=== PATIENT | male | born 1955 | race Caucasian/White ===

== ENCOUNTER 2021-02-22 09:49 | Outpatient (CLI) | payer OTHER, SELFPAY ==
--- NOTE | ~2021-02-22 | XR_ITS ---
EXAMINATION: XR lumbar spine 2-3V DATE: 02/22/2021 10:36 INDICATION: Chronic low back pain TECHNIQUE: Anteroposterior and lateral views of the lumbar spine, and cone-down lateral view of the l umbosacral junction were obtained. COMPARISON: None. FINDINGS: There are 2 mm of retrolisthesis of L3 on L4 and 5 mm of retrolisthesis of L5 on S1. There is severe loss of intervertebral disc space height at L4-5 and L5-S1. Moderate loss of intervertebral disc space height is present throughout the remainder of the lumbar spine. There is no fracture. The re are 17 degrees of lumbar levoscoliosis. Small degenerative osteophytes project from the anterior e ndplates of multiple vertebral bodies. Calcified atherosclerosis is noted. IMPRESSION: 1. Severe lower lumbar spondylosis without acute findings. Reviewed, dictated and finalized at location B.
== END 2021-02-22 09:50 | disposition home or self-care (01) ==
LOC: CHSIMG 09:53
PROVIDERS: PCP Nurse Practitioner; Visit Provider Nurse Practitioner
DX: M54.5 Low back pain (principal)
CPT/HCPCS: 72100

== ENCOUNTER 2023-04-24 13:21 | Emergency (ER) | payer MEDICARE, MEDICAID, SELFPAY ==
[2023-04-24 13:21] VITALS: BP 162/99; PULSE 76; RESP 18; TEMP 37.4; O2SAT 98
[2023-04-24 13:33] VITALS: BP 162/99; PULSE 76; RESP 18; O2SAT 98
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
[2023-04-24 14:30] VITALS: BP 144/93; PULSE 71; RESP 16; TEMP 36.7; O2SAT 100
== END 2023-04-24 14:31 | disposition home or self-care (01) ==
PROVIDERS: Emergency Provider Internal Medicine Critical Care Medicine; PCP Physician Assistant
DX: S51.812A Laceration without foreign body of left forearm, initial encounter (principal); J44.9 Chronic obstructive pulmonary disease, unspecified; F17.210 Nicotine dependence, cigarettes, uncomplicated; Z79.891 Long term (current) use of opiate analgesic; W45.8XXA Other foreign body or object entering through skin, initial encounter
CPT/HCPCS: 12032; 99283

== ENCOUNTER 2024-01-29 09:50 | Outpatient (RCR) | payer OTHER, SELFPAY ==
--- NOTE | 2024-01-29 11:00 | OPREHPOC ---
Outpatient Therapy Plan of Care This is a Multidisciplinary Plan of Care that may contain components documented by all disciplines (PT, OT, and ST.) PT Problem 1 PT Problem #1 Knowledge Deficit PT Goal 1 Goal patient to demonstrate independence with HEP Target Visit 5 PT Problem 2 PT Problem #2 Pain PT Goal 1 Goal 1. patient to report highest pain at 2/10 2. patient to report ability to get up from chair with no L knee pain Target Visit 10 PT Goal 1 Goal Patient to demonstrate 0-135 deg of L knee AROM with no pain at end range to return to biking without pain Target Visit 10 PT Problem 4 PT Problem #4 Impaired Strength PT Goal 1 Goal Patient to demonstrate 4+/5 strength of B LE to return to getting up from chair and squatting for house hold tasks Target Visit 10 PT Problem 5 PT Problem #5 Impaired Functional Mobil PT Goal 1 Goal 1. Patient to score 20% improvement on LEFS 2. Patient to report ability to complete 1 hour of work without increase in L knee pain 3. Patient to navigate stairs to complete laundry with no limitations Target Visit 10
--- NOTE | 2024-01-29 11:00 | PTOPEVAL1 ---
Assessment and note entered by Marlen Lopez DPT Evaluation Information Assessment Status Evaluation Diagnosis L knee pain Onset 01/26/24 Subjective Information Patient reports back in Dec he slipped on ice and twisted his L knee. He reports he had a knee surgery 4 years ago to clean out knee . He reports since the injury his knee pain and instability has improved. He reports the knee feels unstable with numbness below the knee. He reports he has a history of back surgeries. He reports he had an x-ray and MRI that he reports shows torn things . He reports he is to do 30 days of PT prior to being referred to a new ortho. He reports he has been using a cane for the last year due to back pain. He reports pain and instability walking, standing for prolonged periods, navigating stairs, and getting up out of a chair. He enjoys riding his bike. Reported Pain Level Pain Score 1: Self Report Assessment PT Clinical Summary Mr. Ashraf is a 68 year old male who presents to PT with L knee pain and instability. He demonstrates decreased L LE strength, impaired gait mechanics, pain at end range of L knee flexion and positive anterior drawer test indicating ACL tear. He has difficulty with stair navigation, getting up out of a chair, prolonged ambulation and completing house hold chores. He would benefit from skilled PT to address impairments and return to PLOF. Plan of Care Interventions Electrical Stimulation,Gait Training,Hot Pack/Cold Pack,Manual Therapy,Neuro Re-education,Patient/ Caregiver Educati,Therapeutic Activities, Therapeutic Exercise PT Services Indicated Yes Treatment Frequency and 2x weekly for 10 visits Duration These treatments will address the objective and functional deficits as defined above. The patient will be advanced safely and appropriately in order for the patient to progress towards his/her prior level of function. Additional exercises will be introduced and as well as a comprehensive home exercise program upon discharge, if needed, ?to ensure carryover of functional gains achieved in the clinic. This treatment plan has been reviewed and agreement upon by the patient.
--- NOTE | 2024-02-09 10:33 | PCPTNOTE ---
patient no call no show
== END 2024-02-04 20:00 | disposition home or self-care (01) ==
LOC: CHSPT 09:50
PROVIDERS: Visit Provider Orthopaedic Surgery
DX: M23.52 Chronic instability of knee, left knee (principal)
CPT/HCPCS: 97110; 97161

== ENCOUNTER 2025-01-18 08:48 | Emergency (ER) | payer OTHER, SELFPAY ==
--- NOTE | ~2025-01-18 | XR_ITS ---
EXAMINATION: XR ankle RT min 3V DATE: 01/18/2025 09:27 INDICATION: Right ankle sprain. TECHNIQUE: 4 views of right ankle were obtained. COMPARISON: None. FINDINGS: No lateral view was obtained. There is an old healed fracture of distal tibial diaphysis wi th internal fixation with intramedullary frank and 2 distal interlocking screws. There is an oblique fr acture of distal fibula with medial aspect of the fracture line at the lateral tibial plafond. The di stal fracture fragment demonstrates 2 mm posterolateral displacement. 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 IMPRESSION: 1. Oblique fracture of distal fibula. Reviewed, dictated and finalized at location B.
[2025-01-18 08:48] VITALS: BP 150/99; PULSE 92; RESP 18; TEMP 36.9; O2SAT 98
--- NOTE | 2025-01-18 08:59 | ED.LOWEXIN ---
HPI - Extremity Injury (Lower) General Chief Complaint: Extremity Injury, Lower Stated Complaint: FOOT PAIN Time Seen by Provider: 01/18/25 08:59 Source: patient Mode of arrival: ambulatory Limitations: no limitations History of Present Illness HPI Narrative: 69-year-old female, smoker with history of COPD, status post neck and back surgery, rheumatoid arthritis,chronic pain presents to the ED with -- right ankle pain and swelling. He twisted his ankle 1 month ago and has had ongoing pain. He is able to bear weight. He has polyarthritis with joint stiffness in the morning. MD complaint: ankle injury Onset (ago): month(s) ( One month) Injury: Right: ankle Type of Injury: inversion Place: home Severity: moderate Relieving factors: immobilization Exacerbating factors: weight bearing Context: fall Associated symptoms: swelling Other symptoms: none Treatments prior to arrival: cold therapy Related Data Home Medications ?Medication ?Instructions ?Recorded ?Confirmed ?Last Taken ?Type fluticasone 250 mcg-salmeterol 50 1 ea inhalation ONCE 04/24/23 04/24/23 Unknown History mcg/dose blistr powdr for inhalation (Advair Diskus) tramadol 50 mg tablet 50 mg PO Q6-8H PRN Pain 04/24/23 04/24/23 Unknown History Allergies Allergy/AdvReac Type Severity Reaction Status Date / Time No Known Allergies Allergy Verified 01/18/25 08:49 Review of Systems Review of Systems: All systems reviewed & are unremarkable except as noted in HPI and below Constitutional: Constitutional: Reports as per HPI and Reports no additional constitutional complaints Eyes: Eyes: Reports as per HPI and Reports no additional eye complaints ENT: Reports system reviewed and no additional complaints, except as documented and Reports as per HPI Cardiovascular: Cardiovascular: Reports as per HPI and Reports no additional cardiovascular complaints Respiratory: Respiratory: Reports as per HPI, Reports chest congestion, Reports cough and Reports dyspnea Gastrointestinal: Gastrointestinal: Reports as per HPI and Reports no additional gastrointestinal complaints Genitourinary: Genitourinary: Reports no additional male genitourinary complaints and Reports as per HPI Musculoskeletal: Musculoskeletal: Reports no additional musculoskeletal complaints, Reports back pain and Reports arthralgias Comments: chronic neck and back pain. Chronic polyarticular arthralgia Integumentary/Breasts: Skin/Breast: Reports system reviewed and no additional complaints, except as docu and Reports as per HPI Neurologic: Reports system reviewed and no additional complaints, except as documented and Reports as per HPI Psychiatric: Psychiatric: Reports no additional psychiatric complaints and Reports as per HPI Endocrine: Endocrine: Reports no additional endocrine complaints and Reports as per HPI Hematologic/Lymphatic: Hematologic/Lymphatic: Reports no additional hematologic/lymphatic complaints and Reports as per HPI Allergic/Immunologic: Allergic/Immunologic: Reports no additional allergic/immunologic complaints and Reports as per HPI [facility] Past Medical History Medical History Neck pain with history of cervical spinal surgery COPD (chronic obstructive pulmonary disease) Chronic low back pain Chronic neck pain Surgical History Surgical History H/O lumbosacral spine surgery Social History Social History Social History: active smoker Exam Const: General: ill appearing Nutritional Appearance: thin Orientation/consciousness: patient oriented x3 Limitations: no limitations HENMT: Head: normal to inspection Ears: external ears normal Face/Nose/Sinus: Normal external nose present Face and sinus: normal facial exam Mouth: Yes Normal oral and palatal mucosa present Throat: posterior oropharynx normal Eyes: Conjunctivae: conjunctivae normal Pupils: Equal, round and reactive pupils present EOM: EOMs intact bilaterally Direct Ophthalmoscopy: no photophobia Neck: Neck: normal visual inspection, no lymphadenopathy and no meningeal signs Other: chronic neck pain Chest: Chest palpation & inspection: normal inspection of the chest Resp: Effort & Inspection: tachypneic Auscultation: rhonchi and diminished lung sounds Cardio: Rate: regular rate Rhythm: regular rhythm GI: GI Palp: Yes Soft to palpation Auscultation: normal bowel sounds Other: no tenderness/ rigidity / rebound. : General: Yes no CVA tenderness Back/Spine/Pelvis: Back: no CVA tenderness Other: Lumbar spine has scoliosis. Cervical spine as a protuberance of C7. Skin: General skin exam: normal color Rashes: no rashes Wounds: no wounds Neuro: General: patient oriented x3, moves all extremities, no meningeal signs, no focal motor deficits and CN's II-XI intact bilaterally Cranial nerves: Yes Nystagmus not present Speech: normal speech Gait exam (Neuro): Normal gait present Extrem: General: normal to inspection and no clubbing, cyanosis or edema Other: Ulnar deviation of the hand right ankle-- swelling over the lateral malleolus. Tenderness around the lateral malleolus. Sprain of the lateral collateral ligament of the ankle. Psych: Mental Status: mental status grossly normal Affect: normal affect Attitude: cooperative Course Course Emergency Course: accidental fall right fibular fracture with displacement of 2 mm -- Will place short leg posterior splint with a sugar-tong for additional support. Will refer the patient to Ortho specialist. Distal neurovascular bundle is intact. called ortho specialist Dr. Chen for an ortho consultation. Discussed with the ortho specialist to advise a short posterior leg splint. Advised to call the office and schedule an appointment. Post splint application the new distal neurovascular bundle is intact. Vital Signs Vital signs: Vital Signs Temperature 36.9 C 01/18/25 08:48 Pulse Rate 92 01/18/25 08:48 Respiratory Rate 18 01/18/25 08:48 Blood Pressure 150/99 H 01/18/25 08:48 Pulse Oximetry 98 01/18/25 08:48 Oxygen Delivery Room Air 01/18/25 08:48 Temperature 36.9 C 01/18/25 08:48 Pulse Rate 92 01/18/25 08:48 Respiratory Rate 18 01/18/25 08:48 Blood Pressure 150/99 H 01/18/25 08:48 Pulse Oximetry 98 01/18/25 08:48 Oxygen Delivery Room Air 01/18/25 08:48 MDM - Extremity Injury (Lower) MDM Narrative Medical decision making narrative: Accidental fall right fibula fracture Differential Diagnosis Differential diagnosis: Likely ankle sprain and strain and ankle fracture Medical Records Attestation: I reviewed the patient's medical records. Lab Data Attestation: I reviewed the patient's lab results. Discharge Plan Discharge Patient Language: Congolese Prescriptions: No Action fluticasone propion-salmeterol [Advair Diskus] 250-50 mcg/dose blister with device 1 ea INHALATION ONCE tramadol 50 mg tablet 50 mg PO Q6-8H PRN (Reason: Pain) cephalexin 500 mg capsule 500 mg PO Q6H 7 Days Qty: 28 0RF
--- OUTSIDE RECORDS SUMMARY | 2025-01-18 09:08 | XMS_ITS | Clinical Summary ---
Author Organization [facility] Address [facility] [place] [address] Care Team Providers Care Bundle Breaker Name Role Phone Carrol Benitez [facility] Primary Care Provider [phone] Allergies No known active allergies Medications albuterol sulfate HFA 108 (90 Base) MCG/ACT inhaler Inhale 2 puffs into the lungs 4 (four) times daily as needed. 10/10/2014 Active Naproxen Sodium 220 MG Cap Take 2 tablets by mouth 2 (two) times daily as needed. Active ADVAIR DISKUS 250-50 MCG/ACT inhaler Inhale 2 puffs into the lungs daily. 08/27/2022 Active BREO ELLIPTA 200-25 MCG/ACT inhaler 01/06/2024 Active meloxicam (MOBIC) 15 MG tabletIndication s:Patellar instability of left knee,Tear of medial meniscus of left knee, unspecified tear type, unspecified whether old or current tear, initial encounter Take 1 tablet (15 mg total) by mouth daily. 30 tablet 2 01/06/2024 Active Active Problems Problem Noted Date Diagnosed Date Dislocation of toe of right foot, initial encoun ter 11/25/2022 Overview (11/25/2022): Added automatically from request for surgery [id number] Arthritis of foot, right 11/25/2022 Overview (11/25/2022): Added automatically from request for surgery [id number] Loose body in knee, left 10/01/2020 Other tear of medial meniscu s of left knee as current injury, initial encounter 10/01/2020 Pneumothorax on right 05/18/2020 Closed fracture of multiple ribs of right side 0 05/18/2020 Family History Medical History Relation Comments No Known Problems Brother 1 No Known Problems Brother 2 Lung Disease Father No Known Problems Mother No Known Problems Sister Relation Status Comments Brother 1 Brother 2 Alive Father Mother Sister Alive Social History Tobacco Use Types Packs/Day Years Used Date Smoking Tobacco: Every Day Cigarettes 1.5 50 Smokeless Tobacco: Never Tobacco Cessation:Ready to Q uit: Not Asked; Counseling Given: Not Answered Alcohol Use Standard Drinks/Week Comments Yes 60 (1 standard drink = 0.6 oz pu re alcohol) Sex and Gender Information Value Date Recorded Sex Assigned at Male 05/17/2020 10:19 PM CDT Legal Sex Male 9:09 PM SAP PI DEVELOPER Gender Identity Male 05/17/2020 10:19 PM CDT Sexual Orientation Not on file Last Filed Vital Signs Vital Sign Reading Time Taken Comments Blood Pressure 133/95 10/19/2020 9:13 AM SAP PI DEVELOPER Pulse 71 10/19/2020 9:13 AM SAP PI DEVELOPER Temperature 36.3 C (97.4 F) 10/19/2020 9:13 AM SAP PI DEVELOPER Respiratory Rate 20 10/19/2020 9:13 AM SAP PI DEVELOPER Oxygen Saturation 97% 10/19/2020 9:13 AM SAP PI DEVELOPER Inhaled Oxygen Concentration - - Weight 56.7 kg (125 lb) 01/26/2024 8:20 AM CDT Height 177.8 cm (5' 10 ) 01/26/2024 8:20 AM CDT Body Mass Index 17.94 01/26/2024 8:20 AM CDT Plan of Treatment Health Maintenance Due Date Last Done Comments Colorectal Cancer Screening Colonoscopy (10 Years) 1956 Pneumococcal Vaccine: 65+ Years (1 of 2 - PCV) 1962 Hepatitis C 1974 DTaP, Tdap and Td Vaccines (1 - Tdap) 1975 Zoster Vaccines (1 of 2) 2006 Annual Medicare Wellness Visit 2021 Lung Cancer Screening 05/18/2021 05/18/2020 , 03/23/2014, 03/23/2014, Additional history exists COVID-19 Vaccine (2 - season) 2024 11/11/2022 Influenza Adult (#1) 2024 RSV Immunization or 60+ Years (1 - 1-dose 75+ series) 2031 AAA SCREENING Completed 05/18/2020, 0707/2020, 03/23/2014, Additional history exists Meningococcal B Vaccine Aged Out No l onger eligible based on patient's age to complete this topic Meningococcal Vaccine Aged Out No renato colleen eligible based on patient's age to complete this topic RSV Immunizations Under 20 Months Aged Out No longer eligible based on patient's age to complete this topic Procedures Procedure Name Priority Date/Time Associated Diagnosis Comments CT CHEST W CON STAT 05/18/2020 3:25 AM CDT from Last 3 Months or Most Recently Relevant to Health Maintenance Results * CT CHEST W CON (05/18/2020 3:25 AM CDT) Anatomical Region Laterality Modality Chest Computed Tomogra phy 05/18/2020 4:12 AM CDT Impressions 05/18/2020 4:34 AM CDT IMPRESSION: 1. Tiny residual circumferential right-sided pneumothorax with greatest pleural separation in the anterior base at 7 mm 2. Right lower lobe rounded consolidation atelectasis or infiltrate; less likely this is focal area of pulmonary hemorrhage or pulmonary contusion. 3. Advanced underlying centrilobular and bullous emphysematous change 4. Right chest tube in good position 3. Stable biapical fibroatelectasis fibrous scarring thickening 4. Acute nondisplaced fractures right eighth and ninth and 10th ribs in the posterior axillary line. Interpreted By: Whit Sultana DO, 05/18/2020 4:12 AM Narrative 05/18/2020 4:34 AM CDT EXAMINATION: CHEST CT WITH CONTRAST CLINICAL INDICATION: 65-year-old with a right pneumothorax treated with right chest tube. Trauma transfer from [facility]. Patient fell tonight. TECHNIQUE: CT of the chest was acquired after intravenous administration of 100 cc of Isovue-370 into indwelling intravenous access in the right antecubital fossa without adverse contrast reaction reported. Images acquired from the thoracic inlet to the upper abdomen then reconstructed in sagittal and coronal projections. Dose lowering technique was used for this study which may include, but is not limited to, dose reduction techniques, automated exposure control, use of iterative reconstruction and ALARA (As low As Reasonably Achievable)/Image Gently techniques. COMPARISON: Contrast-enhanced CT chest 10/12/2014 and 03/13/[address] chest abdomen and pelvis 03/20/2014 and FDG PET/CT 03/23/2014. FINDINGS: Tiny residual circumferential pneumothorax with 3 mm pleural separation in the apex and 7 mm pleural separation in the anterior base and 6 mm pleural separation in the posterior base. The right chest tube is in good position along the fissure. Small amount of subcutaneous emphysema right lateral chest wall at site of chest tube insertion. No focal opacities that would suggest pulmonary hemorrhage or pulmonary contusion. There is no pleural thickening or pleural reaction. Small area of round atelectasis or localized infiltrate posterior medial right lung base; less likely this could represent small area pulmonary hemorrhage or pulmonary contusion. No characteristics of pulmonary edema . There are findings of advanced centrilobular emphysematous change as well as bullous emphysematous change seen as large subpleural bullae around the upper lobes and along each lung base. Stable area of partially calcified triangular scar in the left apex unchanged since 2013 and there is linear labral atelectasis in the right apex also unchanged since 2013. No interval development of pulmonary nodule. The heart is within normal limits of size. No pericardial effusion. Normal caliber thoracic aorta no aneurysmal dilatation. Thick fluid. Small patulous thick rimmed 3 cm diameter hiatal hernia. Esophageal irregularity could represent distal esophagitis or gastroesophageal reflux disease. The included portions of the liver and spleen and adrenal glands and pancreas and gallbladder are grossly unremarkable. No evidence of ascites or traumatic upper abdominal solid organ injury. Diffuse hepatic steatosis. Bone window imaging: Acute nondisplaced fractures of right eighth and ninth and 10th ribs in the posterior axillary line with subjacent pleural thickening. The sternum and scapula and included thoracic and upper lumbar spine are intact without evidence of acute fracture. Stable old wedge compression deformity superior endplate T6 unchanged in height since 2013. No acute right rib fracture. No pathologic bony abnormality. Procedure Note Whit Sultana MD - 05/18/2020 EXAMINATION: CHEST CT WITH CONTRAST CLINICAL INDICATION: 65-year-old with a right pneumothorax treated with right chest tube.Trauma transfer from [facility]. Patient fell tonight. TECHNIQUE: CT of the chest was acquired after intravenous administration of 100 ccof Isovue-370 into indwelling intravenous access in the right antecubital fossa without adverse contrast reaction reported. Images acquired fromthe thoracic inlet to the upper abdomen then reconstructed in sagittal and coronal projections. Dose lowering technique was used for this study which may include, butis not limited to, dose reduction techniques, automated exposure control,use of iterative reconstruction and ALARA (As low As Reasonably Achievable)/Image Gently techniques. COMPARISON: Contrast-enhanced CT chest 10/12/2014 and 03/13/[address] chest abdomenand pelvis 03/20/2014 and FDG PET/CT 03/23/2014. FINDINGS: Tiny residual circumferential pneumothorax with 3 mm pleural separationin the apex and 7 mm pleural separation in the anterior base and 6 mmpleural separation in the posterior base. The right chest tube is in goodposition along the fissure. Small amount of subcutaneous emphysema right lateral chest wall at site of chest tube insertion. No focal opacities that would suggest pulmonary hemorrhage or pulmonary contusion. There is no pleural thickening or pleural reaction. Smallarea of round atelectasis or localized infiltrate posterior medial right lung base; less likely this could represent small area pulmonary hemorrhageor pulmonary contusion. No characteristics of pulmonary edema . There are findings of advanced centrilobular emphysematous change aswell as bullous emphysematous change seen as large subpleural bullae aroundthe upper lobes and along each lung base. Stable area of partially calcified triangular scar in the left apex unchanged since 2013 and there is linear labral atelectasis in the right apex also unchanged since 2013. No interval development of pulmonary nodule. The heart is within normal limits of size. No pericardial effusion. Normal caliber thoracic aorta no aneurysmal dilatation. Thick fluid. Small patulous thick rimmed 3 cm diameter hiatal hernia. Esophageal irregularity could represent distal esophagitis or gastroesophagealreflux disease. The included portions of the liver and spleen and adrenal glands and pancreas and gallbladder are grossly unremarkable. No evidence ofascites or traumatic upper abdominal solid organ injury. Diffuse hepaticsteatosis. Bone window imaging: Acute nondisplaced fractures of right eighth andninth and 10th ribs in the posterior axillary line with subjacent pleural thickening. The sternum and scapula and included thoracic and upper lumbar spine are intact without evidence of acute fracture. Stable old wedge compression deformity superior endplate T6 unchanged in height since 2013. No acute right rib fracture. No pathologic bony abnormality. IMPRESSION: 1. Tiny residual circumferential right-sided pneumothorax with greatest pleural separation in the anterior base at 7 mm 2. Right lower lobe rounded consolidation atelectasis or infiltrate;less likely this is focal area of pulmonary hemorrhage or pulmonarycontusion. 3. Advanced underlying centrilobular and bullous emphysematous change 4. Right chest tube in good position 3. Stable biapical fibroatelectasis fibrous scarring thickening 4. Acute nondisplaced fractures right eighth and ninth and 10th ribs inthe posterior axillary line. Interpreted By: Whit Sultana DO, 05/18/2020 4:12 AM Beverly Leiva MD CT Fin al Result from Last 3 Months or Most Recently Relevant to Health Maintenance Insurance [employer] Advance Directives * Full Code (Latest Code Status on File) Date Activated Date Inactivated Comments 05/18/2020 3:31 AM 05/21/2020 3:32 PM Care Teams Bundle Breaker Relationship Specialty Start Date End Date Carrol Benitez FNP-BC [address] [facility] [place] [address] PCP - General NURSE PRACTITIONER 10/02/20
--- OUTSIDE RECORDS SUMMARY | 2025-01-18 09:08 | XMS_ITS | Referral Summary ---
Author Organization [facility] Address [address] [place] [id number] Care Team Providers Care Patent Litigation Associate Name Role Phone No, Physician Primary Care Provider [phone] Allergies No known active allergies Medications traMADoL (ULTRAM) 50 mg tablet Take 1 tablet (50 mg total) by mouth every 6 (six) hours as needed 04/08/2023 Active naproxen sodium 220 mg capsule Take 2 tablets by mouth 2 (two) times a day as needed Active albuterol HFA (PROVENTIL HFA,VENTOLIN HFA,PROAIR HFA) 90 mcg/actuation inhaler Inhale 2 puffs 4 (four) times a day as needed 10/10/2014 Active Active Problems Problem Noted Date Diagnosed Date Arthritis of foot, right 11/25/2022 023 Overview (04/22/2023): Added automatically from request for surgery [id number] Dislocation of toe of right foot 11/25/2022 04/22/2023 Overview (04/22/2023): Added automatically from request for surgery [id number] Loose body in knee, left 10/01/2020 023 Tear of medial meniscus of left knee, current 04/22/2023 Closed fracture of multiple ribs of right side 0 03/30/2014 04/22/2023 Closed fracture of thoracic vertebra 03/30/2014 04/22/2023 Interstitial emphysema 03/30/2014 Other nonspecific abnormal finding of lung field 03/30/2014 04/22/2023 Pneumothorax on right 03/30/2014 04/22/2023 Social History Tobacco Use Types Packs/Day Years Used Date Smoking Tobacco: Every Day Cigarettes Personal Safety Answer Date Recorded Getting School Help Needed Not on file 01/02 Sex and Gender Information Value Date Recorded Sex Assigned at Not on file Legal Sex Male 9:21 AM POST FORM REMOVER Gender Identity Not on file Sexual Orientation Not on file Last Filed Vital Signs Vital Sign Reading Time Taken Comments Blood Pressure - - Pulse - - Temperature - - Respiratory Rate - - Oxygen Saturation - - Inhaled Oxygen Concentration - - Weight 56.7 kg (125 lb) 04/22/2023 10:12 AM CDT Height 177.8 cm (5' 10 ) 04/22/2023 10:12 AM CDT Body Mass Index 17.94 04/22/2023 10:12 AM CDT Plan of Treatment Not on file Insurance [facility] MEDIC[facility] Care Teams Patent Litigation Associate Relationship Specialty Start Date End Date No, Physician PCP - General 02/11/23
--- OUTSIDE RECORDS SUMMARY | 2025-01-18 09:08 | XMS_ITS | Encounter Summary ---
Author Organization [facility] Address [address] [place] [address] Care Team Providers Care Gasser Machine Operator Name Role Phone Carrol Benitez [facility] Primary Care Provider [phone] Encounter Details Date Type Department Care Team (Latest Contact Info) Description 09/14/2018 Abstract [facility] , Elisa Tilley MD Social History Tobacco Use Types Packs/Day Years Used Date Smoking Tobacco: Never Assessed Sex and Gender Information Value Date Recorded Sex Assigned at Male 05/17/2020 10:19 PM CDT Legal Sex Male 9:09 PM OPERATIONS BUSINESS PARTNER Gender Identity Male 05/17/2020 10:19 PM CDT Sexual Orientation Not on file documented as of this encounter Plan of Treatment Not on file documented as of this encounter Visit Diagnoses Not on filedocumented in this encounter Additional Health Concerns Infection Onset Date Last Indicated Resolved Time COVID-19 Rule Out 10/16/2020 10/16/2020 10/18/2020 12:41 AM OPERATIONS BUSINESS PARTNER COVID-19 Rule Out 07/30/2021 07/30/2021 07/30/2021 7:11 PM CDT COVID-19 Rule Out 09/06/2021 09/06/2021 09/06/2021 7:47 PM CDT COVID-19 Rule Out 02/07/2022 02/07/2022 02/07/2022 7:20 PM CDT documented as of this encounter Care Teams Gasser Machine Operator Relationship Specialty Start Date End Date Carrol Benitez FNP-BC [address] [place] [address] PCP - General NURSE PRACTITIONER 10/02/20 documented as of this encounter
--- OUTSIDE RECORDS SUMMARY | 2025-01-18 09:08 | XMS_ITS | Clinical Summary ---
Author Organization [facility] Address [address] [place] [address] Care Team Providers Care Linux Systems Administrator Name Role Phone Unavailable Primary Care Provider Unavailabl e Source Comments [facility],non-owned Affiliates and Associated Physician Practices is amultiple site organization consisting of ambulatory clinics and hospital sitesin [place], [place], [place] and [place]. This disclosure is being madepursuant to the Care Everywhere program and may not contain all information available regarding this patient. Last updated 18.[facility] Medications * Be aware that medications may not be up to date on this document. Alwaysverify current medications with the patient. Medication Sig Dispensed Refills Start Date End Date Status Naproxen Sodium 220 MG Take 2 tablets by mouth 2 times daily as needed Active Active Problems Problem Noted Date Diagnosed Date Multiple closed fractures of ribs 03/30/2014 Closed fracture of thoracic vertebra 03/30/2014 Closed fracture of lumbar vertebra 03/30/2014 Interstitial emphysema 03/30/2014 Other nonspecific abnormal finding of lung field 03/30/2014 Pneumothorax 03/30/2014 Social History Tobacco Use Types Packs/Day Years Used Date Smoking Tobacco: Never Cigarettes Smokeless Tobacco: Never Alcohol Use Standard Drinks/Week Comments No 0 (1 standard drink = 0.6 oz pur e alcohol) Sex and Gender Information Value Date Recorded Sex Assigned at Not on file Gender Identity Not on file Sexual Orientation Not on file Last Filed Vital Signs Vital Sign Reading Time Taken Comments Blood Pressure 101/67 04/11/2014 1:46 PM CDT Pulse 89 04/11/2014 1:46 PM CDT Temperature 36.2 C (97.1 F) 04/11/2014 1:46 PM CDT Respiratory Rate 20 03/30/2014 2:19 PM CDT Oxygen Saturation 98% 03/30/2014 2:19 PM CDT Inhaled Oxygen Concentration - - Weight 53.1 kg (117 lb) 04/11/2014 1:46 PM CDT Height 177.8 cm (5' 10 ) 03/23/2014 6:51 AM CDT Body Mass Index 16.79 03/23/2014 6:51 AM CDT Plan of Treatment Health Maintenance Due Date Last Done Comments COLOGUARD (AGES 45-75) - COL ON CA SCREENING 1956 COLON MONITORING 1956 COLONOSCOPY - COLON CA SCREENING 1956 CT COLONOGRAPHY - COLON CA SCREENING 1955 Colorectal Cancer Screening 1956 FIT - COLON CA SCREENING 1956 FLEX SIG - COLON CA SCREENING 1956 LIPID TESTING 1955 MEDICARE AWV 12 MONTHS 1956 HEPATITIS C SCREENING 04/20/1974 DTAP/TDAP/TD VACCINES (1 - Tdap) 1975 PNEUMOCOCCAL VACCINE 50+ (1 of 2 - PCV) 1975 ZOSTER VACCINE (1 of 2) 2006 Respiratory Syncytial Virus (RSV) Vaccine Pt: or over 60 yrs (1 - Risk 60-74 years 1-dose series) 2016 COVID-19 VACCINE ( - 2023-2 5 season) 2024 INFLUENZA VACCINE (#1) 2024 DEPRESSION SCREENING 11/09/2024 HEPATITIS B VACCINE Aged Out No longe r eligible based on patient's age to complete this topic HIB VACCINE Aged Out No longer eligi ble based on patient's age to complete this topic HPV VACCINE Aged Out No longer eligi ble based on patient's age to complete this topic MENINGOCOCCAL (Group B) VACC INE SHARED DECISION-MAKING Aged Out No longer eligibl e based on patient's age to complete this topic MENINGOCOCCAL GROUPS A/C/Y/W VACCINE Aged Out No longer eligible b ased on patient's age to complete this topic
--- OUTSIDE RECORDS SUMMARY | 2025-01-18 09:08 | XMS_ITS | Clinical Summary ---
Author Organization [facility] Address [address] [place] [id number] Care Team Providers Care Plastics Factory Worker Name Role Phone No, Physician Primary Care Provider [phone] Allergies No known active allergies Medications traMADoL [...] (04/22/2023): Added automatically from request for surgery [id number] Dislocation of toe of right foot 11/25/2022 04/22/2023 Overview (04/22/2023): Added automatically from request for surgery [id number] Loose body in knee, left 10/01/2020 023 Tear of medial meniscus of left knee, current 04/22/2023 Closed fracture of multiple ribs of right side 0 03/30/2014 04/22/2023 Closed fracture of thoracic vertebra 03/30/2014 04/22/2023 Interstitial emphysema 03/30/2014 Other nonspecific abnormal finding of lung field 03/30/2014 04/22/2023 Pneumothorax on right 03/30/2014 04/22/2023 Medical History Medical History Date Comments Arthritis Family History Medical History Relation Name Comments Cancer Brother Cancer Father Relation Name Status Comments Brother Father Social History Tobacco Use Types Packs/Day Years Used Date Smoking Tobacco: Every Day Cigarettes Personal Safety Answer Date Recorded Getting School Help Needed Not on file 01/02 Sex and Gender Information Value Date Recorded Sex Assigned at Not on file Legal Sex Male 9:21 AM PROPAGATOR Gender Identity Not on file Sexual Orientation Not on file Obstetrics History Last Filed Vital Signs Vital Sign Reading Time Taken Comments Blood Pressure - - Pulse - - Temperature - - Respiratory Rate - - Oxygen Saturation - - Inhaled Oxygen Concentration - - Weight 56.7 kg (125 lb) 04/22/2023 10:12 AM CDT Height 177.8 cm (5' 10 ) 04/22/2023 10:12 AM CDT Body Mass Index 17.94 04/22/2023 10:12 AM CDT Plan of Treatment Health Maintenance Due Date Last Done Comments Colon Cancer Screening-Colonoscopy 1956 Depression Screening 1956 Fall Risk Assessment 1956 Hepatitis C Screening 1956 Prostate Cancer Screening-PSA 1956 DTaP/Tdap/Td Vaccine (1 - Tdap) 1967 Hepatitis B Screening 1974 Pneumococcal vaccine 65+ (1 of 2 - PCV) 1975 Zoster Vaccine (1 of 2) 2006 Abdominal Aortic Aneurysm (AAA) Screen 2021 Well Visit 65+ 2021 Influenza Vaccine (#1) 2024 Insurance [facility] MEDICARE Care Teams Plastics Factory Worker Relationship Specialty Start Date End Date No, Physician PCP - General 02/11/23
--- OUTSIDE RECORDS SUMMARY | 2025-01-18 09:08 | XMS_ITS | Referral Summary ---
Author Organization [facility] Address [address] [place] [address] Care Team Providers Care Sealer Operator Name Role Phone Unavailable Primary Care Provider Unavailabl e Source Comments [facility],non-owned Affiliates and Associated Physician Practices is amultiple site organization consisting of ambulatory clinics and hospital sitesin [place], [place], [place] and [place]. This disclosure is being madepursuant to the Care Everywhere program and may not contain all information available regarding this patient. Last updated 18.[facility] Medications * Be aware that medications may [...] 03/23/2014 6:51 AM CDT Plan of Treatment Not on file Nicholas Ashraf Personal/Family Self 1955 [address] [address]
--- OUTSIDE RECORDS SUMMARY | 2025-01-18 09:08 | XMS_ITS | Encounter Summary ---
Author Organization [facility] Address [address] [place] [address] Care Team Providers Care Director Nicu Name Role Phone Carrol Benitez [facility] Primary Care Provider [phone] Encounter Details Date Type Department Care Team ([facility] st Contact Info) Description 04/16/2019 Abstract [facility] [address] [place] [address] , Generic Conversion, Social History Tobacco Use Types Packs/Day Years Used Date Smoking Tobacco: Never Assessed Sex and Gender Information Value Date Recorded Sex Assigned at Male 05/17/2020 10:19 PM CDT Legal Sex Male 9:09 PM SUPERVISOR OPEN HEAR[employer] STOCKYARD Gender Identity Male 05/17/2020 10:19 PM CDT Sexual Orientation Not on file documented as of this encounter Plan of Treatment Not on file documented as of this encounter Visit Diagnoses Not on filedocumented in this encounter Additional Health Concerns Infection Onset Date Last Indicated Resolved Time COVID-19 Rule Out 10/16/2020 10/16/2020 10/18/2020 12:41 AM SUPERVISOR OPEN HEARTH STOCKYARD COVID-19 Rule Out 07/30/2021 07/30/2021 07/30/2021 7:11 PM CDT COVID-19 Rule Out 09/06/2021 09/06/2021 09/06/2021 7:47 PM CDT COVID-19 Rule Out 02/07/2022 02/07/2022 02/07/2022 7:20 PM CDT documented as of this encounter Care Teams Director Nicu Relationship Specialty Start Date End Date Carrol Benitez FNP-BC [address] [place] [address] PCP - General NURSE PRACTITIONER 10/02/20 documented as of this encounter
--- OUTSIDE RECORDS SUMMARY | 2025-01-18 09:08 | XMS_ITS | Encounter Summary ---
Author Organization [facility] Address [address] [place] [id number] Care Team Providers Care Black Mill Operator Name Role Phone Carrol Benitez [facility] Primary Care Provider [phone] Reason for Visit * Reason Onset Date Comments Hospital Follow Up 05/22/2020 05.21.20 Encounter Details Date Type Department Care Team (Latest Contact Info) Description 05/22/2020 Hospital Follow-up Call [facility] Unit [address] [place] [address] Roxy Caballero, RN Hospital Follow Up (05.21.20) Social History Tobacco Use Types Packs/Day Years Used Date Smoking Tobacco: Every Day Cigarettes Smokeless Tobacco: Never Alcohol Use Standard Drinks/Week Comments Yes 60 (1 standard drink = 0.6 oz pu re alcohol) Sex and Gender Information Value Date Recorded Sex Assigned at Male 05/17/2020 10:19 PM CDT Legal Sex Male 9:09 PM [employer] Gender Identity Male 05/17/2020 10:19 PM CDT Sexual Orientation Not on file COVID-19 Exposure Response Date Recorded In the last month, have you been in contact with someone who was confirmed or suspected to have Coronavirus / COVID-19? No / Unsure 05/18/2020 3:16 AM CDT documented as of this encounter Functional Status * RETIRED Are you deaf or do you have serious difficulty hearing Answer Date of Assessment Author Status No 05/18/2020 6:31 AM CDT Activ e * RETIRED Are you blind or do you have serious difficulty seeing, even when wearing glasses? Answer Date of Assessment Author Status No 05/18/2020 6:31 AM CDT Activ e * Do you have serious difficulty walking or climbing stairs? Answer Date of Assessment Author Status No 05/18/2020 6:31 AM SILAST Subha Bird RN Active * Do you have difficulty dressing or bathing? Answer Date of Assessment Author Status No 05/18/2020 6:31 AM SILSAT Subha Bird RN Active * Because of a physical, mental, or emotional condition, do you have difficulty doing errands alone such as visiting a doctor's office or shopping? Answer Date of Assessment Author Status No 05/18/2020 6:31 AM Subha Lopez RN Active documented as of this encounter Mental Status * Because of a physical, mental, or emotional condition, do you have serious difficulty concentrating, remembering, or making decisions? Answer Entry Date Author Status No 05/18/2020 6:31 AM Subha Lopez RN Active documented in this encounter Plan of Treatment Not on file documented as of this encounter Visit Diagnoses Not on filedocumented in this encounter Additional Health Concerns Infection Onset Date Last Indicated Resolved Time COVID-19 Rule Out 10/16/2020 10/16/2020 10/18/2020 12:41 AM [employer] COVID-19 Rule Out 07/30/2021 07/30/2021 07/30/2021 7:11 PM CDT COVID-19 Rule Out 09/06/2021 09/06/2021 09/06/2021 7:47 PM CDT COVID-19 Rule Out 02/07/2022 02/07/2022 02/07/2022 7:20 PM CDT documented as of this encounter Care Teams Black Mill Operator Relationship Specialty Start Date End Date Carrol Benitez FNP-BC [address] [place] [id number] PCP - General NURSE PRACTITIONER 10/02/20 documented as of this encounter
--- OUTSIDE RECORDS SUMMARY | 2025-01-18 09:08 | XMS_ITS | Clinical Summary ---
Author Organization [facility] Address [address] [place] [address] Phone Care Team Providers Care Director Of Exhibits Name Role Phone Provider, None Primary Care Provider Unavailabl e Allergies No known active allergies Medications famotidine (PEPCID) 20 MG Tablet Take 1 Tab by mouth 2 times daily as needed (itching, swelling). 10 Tab 04/02/2019 Active Social History Tobacco Use Types Packs/Day Years Used Date Smoking Tobacco: Every Day Cigarettes Smokeless Tobacco: Never Alcohol Use Standard Drinks/Week Comments Yes 0 (1 standard drink = 0.6 oz pur e alcohol) daily Sex and Gender Information Value Date Recorded Sex Assigned at Not on file Legal Sex Male 7:38 PM CDT Gender Identity Not on file Sexual Orientation Not on file Last Filed Vital Signs Vital Sign Reading Time Taken Comments Blood Pressure 134/72 04/02/2019 10:29 AM CDT Pulse 88 04/02/2019 10:29 AM CDT Temperature 36.1 C (96.9 F) 04/02/2019 10:29 AM CDT Respiratory Rate 20 04/02/2019 10:29 AM CDT Oxygen Saturation 97% 04/02/2019 10:29 AM CDT Inhaled Oxygen Concentration - - Weight 56.7 kg (125 lb) 04/02/2019 10:29 AM CDT Height 177.8 cm (5' 10 ) 04/02/2019 10:29 AM CDT Body Mass Index 17.94 04/02/2019 10:29 AM CDT Plan of Treatment Not on file Insurance MEDICAID [facility] Care Teams Director Of Exhibits Relationship Specialty Start Date End Date Provider, None [place] PCP - General 04/02/19
--- OUTSIDE RECORDS SUMMARY | 2025-01-18 09:09 | XMS_ITS | Patient Health Summary ---
Author Organization [facility] Address [address] [place] [address] Care Team Providers Care Cloth Desizing Range Tender Name Role Phone Unavailable Primary Care Provider Unavailabl e Note from [facility],non-owned Affiliates and Associated Physician Practices is amultiple site organization consisting of ambulatory clinics and hospital sitesin [place], [place], [place] and [place]. This disclosure is being madepursuant to the Care Everywhere program and may not contain all information available regarding this patient. Last updated 18.[facility] Medications * Be aware that medications may not be up to date on this document. Alwaysverify current medications with the patient. * Naproxen Sodium 220 MG Take 2 tablets by mouth 2 times daily as needed Active Problems Problem Noted Date Diagnosed Date [...] Mass Index 16.79 03/23/2014 6:51 AM CDT Procedures * XR SPINE ENTIRE 2 OR 3VW(Performed 08/21/2022) Performed for Back pain, unspecified back location, unspecified back pain laterality, unspecified chronicity * XR CHEST 2VW(Performed 04/11/2014) * XR THORACIC SPINE 2VW(Performed 04/11/2014) * XR CHEST 2VW(Performed 04/06/2014) * XR CHEST 1VW PORTABLE(Performed 03/30/2014) * XR CHEST 1VW PORTABLE(Performed 03/30/2014) * CBC W AUTO DIFFERENTIAL(Performed 03/30/2014) * CBC W AUTO DIFFERENTIAL(Performed 03/30/2014) * XR CHEST 1VW PORTABLE(Performed 03/29/2014) * CBC W AUTO DIFFERENTIAL(Performed 03/29/2014) * DIFFERENTIAL MANUAL(Performed 03/29/2014) * CBC W AUTO DIFFERENTIAL(Performed 03/29/2014) * VAS BILATERAL VENOUS DUPLEX LE(Performed 03/28/2014) * XR CHEST 1VW PORTABLE(Performed 03/28/2014) * CBC W AUTO DIFFERENTIAL(Performed 03/28/2014) * DIFFERENTIAL MANUAL(Performed 03/28/2014) * MAGNESIUM BLOOD(Performed 03/28/2014) * PHOSPHORUS BLOOD(Performed 03/28/2014) * BASIC METABOLIC PANEL (CALCIUM TOTAL)(Performed 03/28/2014) * CBC W AUTO DIFFERENTIAL(Performed 03/28/2014) * XR THORACIC SPINE 2VW(Performed 03/27/2014) * XR CHEST 1VW PORTABLE(Performed 03/27/2014) * DIFFERENTIAL MANUAL(Performed 03/27/2014) * CBC W AUTO DIFFERENTIAL(Performed 03/27/2014) * PREALBUMIN(Performed 03/27/2014) * MAGNESIUM BLOOD(Performed 03/27/2014) * PHOSPHORUS BLOOD(Performed 03/27/2014) * BASIC METABOLIC PANEL (CALCIUM TOTAL)(Performed 03/27/2014) * PTT [facility](Performed 03/27/2014) * PT-INR [facility](Performed 03/27/2014) * CBC W AUTO DIFFERENTIAL(Performed 03/27/2014) * XR CHEST 1VW PORTABLE(Performed 03/26/2014) * CBC W AUTO DIFFERENTIAL(Performed 03/26/2014) * DIFFERENTIAL MANUAL(Performed 03/26/2014) * MAGNESIUM BLOOD(Performed 03/26/2014) * PHOSPHORUS BLOOD(Performed 03/26/2014) * BASIC METABOLIC PANEL (CALCIUM TOTAL)(Performed 03/26/2014) * CBC W AUTO DIFFERENTIAL(Performed 03/26/2014) * CULTURE AEROBIC + GRAM STAIN(Performed 03/25/2014) * CULTURE AEROBIC(Performed 03/25/2014) * BASIC METABOLIC PANEL (CALCIUM TOTAL)(Performed 03/25/2014) * PHOSPHORUS BLOOD(Performed 03/25/2014) * MAGNESIUM BLOOD(Performed 03/25/2014) * CBC W/O DIFFERENTIAL(Performed 03/25/2014) * XR CHEST 1VW PORTABLE(Performed 03/25/2014) * CULTURE RESPIRATORY LOWER(Performed 03/25/2014) * CULTURE SPUTUM+GRAM STAIN(Performed 03/25/2014) * GRAM STAIN SMEAR(Performed 03/25/2014) * CULTURE RESPIRATORY LOWER(Performed 03/24/2014) * CULTURE SPUTUM+GRAM STAIN(Performed 03/24/2014) * GRAM STAIN SMEAR(Performed 03/24/2014) * CULTURE URINE(Performed 03/24/2014) * HISTOPLASMA GALACTOMANNAN AG URINE(Performed 03/24/2014) * URINALYSIS REFLEX TO MICROSCOPIC NO CULTURE(Performed 03/24/2014) * BASIC METABOLIC PANEL (CALCIUM TOTAL)(Performed 03/24/2014) * PHOSPHORUS BLOOD(Performed 03/24/2014) * MAGNESIUM BLOOD(Performed 03/24/2014) * CBC W AUTO DIFFERENTIAL(Performed 03/24/2014) * CBC W AUTO DIFFERENTIAL(Performed 03/24/2014) * CULTURE BLOOD(Performed 03/24/2014) * CULTURE BLOOD(Performed 03/24/2014) * XR CHEST 1VW PORTABLE(Performed 03/24/2014) * XR CHEST 1VW PORTABLE(Performed 03/23/2014) * CT CHEST WO CONTRAST(Performed 03/23/2014) * PET CT WHOLE BODY(Performed 03/23/2014) * GLUCOSE - POINT OF CARE (AMB) [facility](Performed 03/23/2014) * BASIC METABOLIC PANEL (CALCIUM TOTAL)(Performed 03/23/2014) * XR CHEST 1VW PORTABLE(Performed 03/23/2014) * GLUCOSE - POINT OF CARE (AMB) [facility](Performed 03/23/2014) * XR THORACIC SPINE 2VW(Performed 03/22/2014) * HISTOPLASMA ANTIGEN BLOOD(Performed 03/22/2014) * CBC W AUTO DIFFERENTIAL(Performed 03/22/2014) * DIFFERENTIAL MANUAL(Performed 03/22/2014) * CBC W AUTO DIFFERENTIAL(Performed 03/22/2014) * XR CHEST 1VW PORTABLE(Performed 03/22/2014) * BASIC METABOLIC PANEL (CALCIUM TOTAL)(Performed 03/22/2014) * LIPASE BLOOD(Performed 03/22/2014) * HEPATIC FUNCTION PANEL(Performed 03/22/2014) * XR THORACIC SPINE 2VW(Performed 03/21/2014) * BASIC METABOLIC PANEL (CALCIUM TOTAL)(Performed 03/21/2014) * PHOSPHORUS BLOOD(Performed 03/21/2014) * MAGNESIUM BLOOD(Performed 03/21/2014) * CBC W/O DIFFERENTIAL(Performed 03/21/2014) * XR CHEST 1VW PORTABLE(Performed 03/21/2014) * DRUG ABUSE PANEL 10-20+ETHANOL URINE NO CONFIRM(Performed 03/21/2014) * URINALYSIS REFLEX TO MICROSCOPIC NO CULTURE(Performed 03/21/2014) * CT LUMBAR SPINE WO CONTRAST(Performed 03/20/2014) * CT THORACIC SPINE WO CONTRAST(Performed 03/20/2014) * CT CHEST ABDOMEN PELVIS W CONT(Performed 03/20/2014) * CT HEAD WO CONTRAST(Performed 03/20/2014) * CT CERVICAL SPINE WO CONTRAST(Performed 03/20/2014) * XR CHEST 1VW PORTABLE(Performed 03/20/2014) * BLOOD GASES ESHA(Performed 03/20/2014) * ALCOHOL ETHYL BLOOD(Performed 03/20/2014) * LIPASE BLOOD(Performed 03/20/2014) * COMPREHENSIVE METABOLIC PANEL(Performed 03/20/2014) * CBC W AUTO DIFFERENTIAL(Performed 03/20/2014) * DIFFERENTIAL MANUAL(Performed 03/20/2014) * PT-INR [facility](Performed 03/20/2014) * PTT [facility](Performed 03/20/2014) * CBC W AUTO DIFFERENTIAL(Performed 03/20/2014) * XR CHEST 1VW PORTABLE(Performed 03/20/2014) * XR PELVIS 1 OR 2VW(Performed 03/20/2014) * TYPE + SCREEN PANEL(Performed 03/20/2014) Results * XR SPINE ENTIRE 2 OR 3VW (08/21/2022 11:12 AM CDT) Anatomical Region Laterality Modality Spine Radiographic Tanya ging 08/21/2022 11:2 1 AM CDT Impressions 08/21/2022 11:26 AM CDT IMPRESSION: Scoliosis with sagittal and coronal plane imbalance. Posterior instrumented spinal fusion at C3-C7. 4 mm anterolisthesis at C3-4. > Interpreting Provider: Kenny Dsouza MD on 08/21/2022 11:26 AM Narrative 08/21/2022 11:26 AM CDT PROCEDURE: XR SPINE ENTIRE 2 OR 3VW, DATE/TIME OF EXAM: 08/21/2022 11:12 AM, LOCATION [facility] INDICATION: M54.9: Back pain, unspecified back location, unspecified back pain laterality, unspecified chronicity ADDITIONAL CLINICAL INFORMATION: Ordering Provider Reason For Exam: bp Technologist Note: Additional: COMPARISON: Thoracic spine radiographs dated 04/11/2014. TECHNIQUE: FINDINGS: There is thoracolumbar scoliosis including a dextro curve measuring 18 degrees from the midthoracic spine to L2, and a levo curve measuring 22 degrees from L2 to L4. There is coronal plane imbalance measuring approximately +7 cm, but the pelvis is rotated limiting precise measurement. There is sagittal plane imbalance measuring positive 7.6 cm. Posterior instrumented fusion with rods and screws from C3 to C7 is noted. There is 4 mm anterolisthesis at C3-3-4. There is chronic deformity of the T6 superior endplate corresponding to a previously reported fracture. A previously reported T3 fracture is not well visualized on this study. Multilevel degenerative changes, greatest in the lower lumbar region. Right dynamic hip screw noted. Procedure Note Kenny Dsouza MD - 08/21/2022 PROCEDURE: XR SPINE ENTIRE 2 OR 3VW, DATE/TIME OF EXAM: 1:12 AM, LOCATION [facility] INDICATION: M54.9: Back pain, unspecified back location, unspecified back pain laterality, unspecified chronicity ADDITIONAL CLINICAL INFORMATION: Ordering Provider Reason For Exam: bp Technologist Note: Additional: COMPARISON: Thoracic spine radiographs dated 04/11/2014. TECHNIQUE: FINDINGS: There is thoracolumbar scoliosis including a dextro curve measuring 18 degrees from the midthoracic spine to L2, and a levo curve measuring 22 degrees from L2 to L4. There is coronal plane imbalance measuring approximately +7 cm, but the pelvis is rotated limiting precise measurement. There is sagittal plane imbalance measuring positive 7.6cm. Posterior instrumented fusion with rods and screws from C3 to C7 isnoted. There is 4 mm anterolisthesis at C3-3-4. There is chronic deformity ofthe T6 superior endplate corresponding to a previously reported fracture. A previously reported T3 fracture is not well visualized on this study. Multilevel degenerative changes, greatest in the lower lumbar region.Right dynamic hip screw noted. IMPRESSION: Scoliosis with sagittal and coronal plane imbalance. Posterior instrumented spinal fusion at C3-C7. 4 mm anterolisthesis at C3-4. > Interpreting Provider: Kenny Dsouza MD on 08/21/2022 11:26 AM Mansoor Mandujano MD DIAGNOSTIC IMAGING O RDERABLES * XR THORACIC SPINE 2VW (04/11/2014 12:40 PM CDT) Only the most recent of4 resultswithin the time period is included. Anatomical Region Laterality Modality Spine Other Impressions 04/11/2014 3:20 PM CDT Impression: 1. The superior endplate fracture of T3 and T6 burst fracture are better visualized on CT. Report dictated by Kira Hadley M.D. (resident care aide). This report was approved by Kira Hadley M.D. on 04/11/2014 3:19 PM . IDr. CANDACE M.D. have personally reviewed and interpreted this examination/study. This report was electronically signed by CANDACE PHAM M.D. on 04/11/2014 3:20 PM . Narrative 04/11/2014 3:20 PM CDT Exam: XR SPINE THORACIC 2 VWS Date: 04/11/2014 12:41 PM History: Multiple thoracic fractures Comparison: Comparison is made to prior study dated 03/27/2014. Findings: There is unchanged mild dextrocurvature of the thoracic spine. The alignment is otherwise normal. The superior endplate fracture of T3 and T6 burst fracture are better visualized on CT. There is unchanged multilevel degenerative disc disease in the thoracic spine. Procedure Note Candace Pham MD - 02/06/2018 Exam: XR SPINE THORACIC 2 VWS Date: 04/11/2014 12:41 PM History: Multiple thoracic fractures Comparison: Comparison is made to prior study dated 03/27/2014. Findings: There is unchanged mild dextrocurvature of the thoracic spine. Thealignment is otherwise normal. The superior endplate fracture of T3 and [id number] fracture are better visualized on CT. 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 IMPRESSION Impression: 1. The superior endplate fracture of T3 and T6 burst fracture are bettervisualized on CT. Report dictated by Kira Hadley M.D. (resident care aide). This report was approved by Kira Hadley M.D. on 04/11/2014 3:[address] CANDACE Pleitez M.D. have personally reviewed and interpretedthis examination/study. This report was electronically signed by CANDACE PHAM M.D. on04/11/2014 3:20 PM . Miguel Valdivia MD DIAGNOSTIC IMAGING O RDERABLES * XR CHEST 2VW (04/11/2014 12:40 PM CDT) Only the most recent of2 resultswithin the time period is included. Anatomical Region Laterality Modality Chest Other Impressions 04/11/2014 3:21 PM CDT Impression: Left apical chest tube has been removed. No pneumothorax. Unchanged left pleural effusion with associated atelectasis. Report dictated by Artie Eddy M.D., MPH (resident). This report was approved by Artie Eddy M.D. on 04/11/2014 1:[address] CANDACE Pleitez M.D. have personally reviewed and interpreted this examination/study. This report was electronically signed by CANDACE PHAM M.D. on 04/11/2014 3:21 PM . Narrative 04/11/2014 3:21 PM CDT Exam: XR CHEST PA AND LATERAL Exam Date: 04/11/2014 12:41 PM History: Chest tube removal Comparison: Chest radiograph from 04/06/14. Findings: The previously visualized left apically directed chest tube has been removed. The lungs continue to be hyperinflated. The small left pleural effusion with associated atelectasis is unchanged. The known biapical spiculated pulmonary nodules are better characterized on CT and PET/CT from 03/23/2014. No pneumothorax is present. The cardiomediastinal silhouette is normal. The known left rib fractures are demonstrated. Procedure Note Candace Pham MD - 02/06/2018 Exam: XR CHEST PA AND LATERAL Exam Date: 04/11/2014 12:41 PM History: Chest tube removal Comparison: Chest radiograph from 04/06/14. Findings: The previously visualized left apically directed chest tube has beenremoved. The lungs continue to be hyperinflated. The small left pleural effusionwith associated atelectasis is unchanged. The known biapical spiculatedpulmonary nodules are better characterized on CT and PET/CT from03/23/2014. No pneumothorax is present. The cardiomediastinal silhouette is normal. The known left rib fractures aredemonstrated. IMPRESSION Impression: Left apical chest tube has been removed. No pneumothorax. Unchanged left pleural effusion with associated atelectasis. Report dictated by Artie Eddy M.D., MPH (resident). This report was approved by Artie Eddy M.D. on 04/11/20141:57 PM . I, Dr. CANDACE PHAM M.D. have personally reviewed and interpretedthis examination/study. This report was electronically signed by CANDACE PHAM M.D. on04/11/2014 3:21 PM . Vish Trujillo MD DIAGNOSTIC IMAGIN G ORDERABLES * XR CHEST 1VW PORTABLE (03/30/2014 2:29 PM CDT) Only the most recent of14 resultswithin the time period is included. Anatomical Region Laterality Modality Chest Other Impressions 04/01/2014 7:33 PM CDT Impression: 1. No pneumothorax. 2. Moderate left pleural effusion and left basilar atelectasis/airspace disease, unchanged. Report dictated by Aaron Reich M.D. (resident care aide). Dr. KENNY Pleitez MD have personally reviewed and interpreted this examination/study. This report was electronically signed by KENNY DSOUZA MD on 04/01/2014 7:33 PM . Narrative 04/01/2014 7:33 PM CDT Exam: PX CHEST 1 VW Date: 03/30/2014 2:29 PM History: s/p heimlich valve Comparison: Comparison is made with a prior study dated 03/30/2014 at 5:32 AM Findings: The left apically directed chest tube is unchanged in position. The lungs remain hyperinflated. No pneumothorax is identified. A moderate left pleural effusion and left basilar atelectasis/airspace disease unchanged. Linear opacities at the right lung base likely represent subsegmental atelectasis. Biapical spiculated pulmonary nodules are better characterized on CT and PET/CT dated 03/23/2014. The cardiomediastinal silhouette is stable. Multiple left rib fractures are redemonstrated. Mild scoliosis is noted. Procedure Note Kenny Dsouza MD - 02/06/2018 Exam: PX CHEST 1 VW Date: 03/30/2014 2:29 PM History: s/p heimlich valve Comparison: Comparison is made with a prior study dated 03/30/2014 at 5:32AM Findings: The left apically directed chest tube is unchanged in position. The lungsremain hyperinflated. No pneumothorax is identified. A moderate leftpleural effusion and left basilar atelectasis/airspace disease unchanged.Linear opacities at the right lung base likely represent subsegmental atelectasis. Biapical spiculatedpulmonary nodules are better characterized on CT and PET/CT dated03/23/2014. The cardiomediastinal silhouette is stable. Multiple left ribfractures are redemonstrated. Mild scoliosis is noted. IMPRESSION Impression: 1. No pneumothorax. 2. Moderate left pleural effusion and left basilar atelectasis/airspacedisease, unchanged. Report dictated by Aaron Reich M.D. (resident care aide). Dr. KENNY Pleitez MD have personally reviewed and interpreted thisexamination/study. This report was electronically signed by KENNY DSOUZA MD on 04/01/20147:33 PM . David Martini MD DIAGNOSTIC IMAGING O RDERABLES * (ABNORMAL) CBC W AUTO DIFFERENTIAL (03/30/2014 3:22 AM CDT) Only the most recent of16 resultswithin the time period is included. WBC 10.4 3.5 - 10.5 10 3/uL [facility] RBC 3.43(L) 4.30 - 5.70 10 6/uL [facility] Hemoglobin 11.2(L) 13.5 - 17.5 g/dL [facility] Hematocrit 32.9(L) 39.0 - 50.0 % [facility] MCV 95.9 81.0 - 97.0 fL [facility] MCH 32.7 28.0 - 34.0 pg [facility] MCHC 34.0 32.0 - 36.0 g/dL [facility] Platelet Count 494(H) 150 - 400 10 3/uL [facility] RDW-SD 46.0 36.0 - 50.0 fL [facility] RDW-CV 13.2 11.2 - 14.8 % [facility] MPV 8.8(L) 9.3 - 12.8 fL [facility] nRBC Absolute 0.00 0 10 3/uL [facility] nRBC Auto 0.0 0 /100 WBC [facility] RET-HE 33 pg [facility] Neutrophils % 69.3 35.0 - 70.0 % [facility] Lymphocytes % 7.3(L) 19.7 - 55.1 % [facility] Monocytes % 15.9(H) 3.0 - 15.0 % [facility] Eosinophils % 6.5(H) 0.0 - 6.0 % [facility] Basophil % 1.0 0.0 - 1.5 % [facility] Neutrophils Absolute 7.2(H) 1.6 - 7.0 10 3/uL [facility] Lymphocyte Absolute 0.8 0.8 - 2.9 10 3/uL [facility] Monocytes Absolute 1.66(H) 0.14 - 0.66 10 3/uL [facility] Eosinophils Absolute 0.68(H) 0.00 - 0.22 10 3/uL [facility] Basophils Absolute 0.10(H) 0.00 - 0.06 10 3/uL [facility] Blood specimen (specimen) BLOOD SPECIMEN / Unknown 03/30/2014 3:22 AM CDT 03/30/2014 3:53 AM CDT David Martini MD LAB - HEMATOLOGY ORD ERABLES Performing Organization Address [facility]/State/ZIP Co de Phone Number [address] [phone] * (ABNORMAL) DIFFERENTIAL MANUAL (03/29/2014 2:43 AM CDT) Only the most recent of6 resultswithin the time period is included. WBC (corrected for NRBC) 9.6 10 3/uL [facility] Total Cell Count 100 [facility] Neutrophils Absolute Manual 7.97(H) 1.60 - 7.00 10 3/uL [facility] Comment:(BANDS+SEGS) x WBC = NEUT # (ANC) Lymphocyte Absolute Manual 0.67(L) 0.80 - 2.90 10 3/uL [facility] Monocytes Absolute Manual 0.48 0.14 - 0.66 10 3/uL [facility] Eosinophils Absolute Manual 0.29(H) 0.00 - 0.22 10 3/uL [facility] Neutrophil % Manual 83(H) 30 - 60 % [facility] Lymphocyte % Manual 7(L) 20 - 45 % [facility] Monocytes % Manual 5 2 - 10 % [facility] Eosinophils % Manual 3 1 - 6 % [facility] Atypical Lymphocyte % Manual 2(H) 0 % [facility] Platelet Estimate Slightly Increased(A) Adequate [facility] RBC Morphology Normal [facility] Blood specimen (specimen) BLOOD SPECIMEN / Unknown 03/29/2014 2:43 AM CDT 03/29/2014 3:45 AM CDT David Martini MD LAB - HEMATOLOGY ORD SIMONE [facility] [address] [phone] * VAS BILATERAL VENOUS DUPLEX LE (03/28/2014 9:41 AM CDT) Anatomical Region Laterality Modality Other David Martini MD VASCULAR LAB ORDERAB LES * BASIC METABOLIC PANEL (CALCIUM TOTAL) (03/28/2014 2:27 AM CDT) Only the most recent of8 resultswithin the time period is included. BUN 18 7 - 26 mg/dL [facility] Anion Gap 15 8 - 18 [facility] BUN/Creatinine Ratio 23 7 - 23 [facility] Osmolality Calculated 272 270 - 300 mOsm/kg [facility] Creatinine 0.8 0.6 - 1.2 mg/dL [facility] Sodium 137 136 - 145 mmol/L [facility] Potassium 4.3 3.5 - 4.5 mmol/L [facility] Chloride 98 98 - 107 mmol/L [facility] CO2 28 22 - 29 mmol/L [facility] Glucose 107 70 - 115 mg/dL [facility] Calcium 9.3 8.4 - 10.2 mg/dL [facility] eGFR >60 >60 mL/min/1.7 3 m2 [facility] Blood specimen (specimen) BLOOD SPECIMEN / Unknown 03/28/2014 2:27 AM CDT 03/28/2014 3:12 AM CDT David Martini MD LAB - CHEMISTRY [facility]PH [facility]ELO[facility] Organization Address City/State/ZIP Co de Phone Number [facility] [address] [phone] * PHOSPHORUS BLOOD (03/28/2014 2:27 AM CDT) Only the most recent of6 resultswithin the time period is included. Phosphorus 3.5 2.3 - 4.7 mg/dL [facility] Blood specimen (specimen) BLOOD SPECIMEN / Unknown 03/28/2014 2:27 AM CDT 03/28/2014 3:12 AM CDT David Martini MD LAB - CHEMISTRY RUDOLPH VELOZ Performing Organization Address [facility]/ZIP Co de Phone Number [address] [phone] * MAGNESIUM BLOOD (03/28/2014 2:27 AM CDT) Only the most recent of6 resultswithin the time period is included. Magnesium 2.2 1.6 - 2.6 mg/dL [facility] Blood specimen (specimen) BLOOD SPECIMEN / Unknown 03/28/2014 2:27 AM CDT 03/28/2014 3:12 AM CDT David Martini MD LAB - CHEMISTRY RUDOLPH VELOZ Performing Organization Address [facility] Co de Phone Number [address] [phone] * PTT [facility] (03/27/2014 3:30 AM CDT) Only the most recent of2 resultswithin the time period is included. APTT 32.5 23.0 - 38.4 Seconds [facility] Comment:Suggested therapeuti c range for full dose I.V. heparin therapy for venous thromboembolism is 66.0-91.0 seconds. Blood specimen (specimen) BLOOD SPECIMEN / Unknown 03/27/2014 3:30 AM CDT 03/27/2014 4:03 AM CDT Narrative [facility] - 03/27/2014 4:33 AM CDT Is patient on Heparin, Argatroban or Dabigatran?->N David Martini MD LAB - COAGULATION OR DERABLES Performing Organization Address [facility] Co de Phone Number [address] [phone] * (ABNORMAL) PT-INR [facility] (03/27/2014 3:30 AM CDT) Only the most recent of2 resultswithin the time period is included. PT 12.0(L) 12.1 - 14.8 Seconds [facility] INR 0.9 See Comment [facility] Comment: Suggested therapeutic range for low-intensity coumadin therapy for venous thromboembolism prophylaxis is an INR of 2.0-3.0. For high risk patients (Mitral Valve Prosthesis, Atrial Fibrillation, history of TIA/stroke), suggested prophylactic therapeutic range is an INR of 2.5-3.5. Blood specimen (specimen) BLOOD SPECIMEN / Unknown 03/27/2014 3:30 AM CDT 03/27/2014 4:03 AM CDT Narrative [facility] - 03/27/2014 4:33 AM CDT Is patient on Heparin, Argatroban or Dabigatran?->N David Martini MD LAB - COAGULATION OR DERABLES [address] [phone] * (ABNORMAL) PREALBUMIN (03/27/2014 3:30 AM CDT) Prealbumin 12(L) 16 - 45 mg/dL [facility] Blood specimen (specimen) BLOOD SPECIMEN / Unknown 03/27/2014 3:30 AM CDT 03/27/2014 4:03 AM CDT David Martini MD LAB - CHEMISTRY ORDE RABLES Performing Organization Address City/[facility]/ZIP Co de Phone Number [address] [phone] * (ABNORMAL) CULTURE AEROBIC + GRAM STAIN (03/25/2014 12:24 PM CDT) Culture Aerobic COAG NEG STAPH SPECIES(A) [facility] Comment: Growth at 48 Hours Coagulase Neg Staph Species Results called to and read back by Xochitl AT 09:15 AM, 03/27/2014. Results called to and read back by AT 9:30 AM, 03/27/2014. Tissue specimen from lung (specimen) (Chest Tube) 03/25/2014 12:24 PM CDT 03/25/2014 12:43 PM CDT Narrative [facility] - 03/29/2014 11:32 AM CDT From left chest tube Organism Antibiotic Method Susceptibility Coagulase negative Staphylococcus Clindamycin SUSCEPTIBILITY 0.25: Sensitive Coagulase negative Staphylococcus Doxycycline SUSCEPTIBILITY <=0.5: Sensitive Coagulase negative Staphylococcus Erythromycin SUSCEPTIBILITY >=8: Resistant Coagulase negative Staphylococcus Gentamicin SUSCEPTIBILITY <=0.5: Sensitive Coagulase negative Staphylococcus Levofloxacin SUSCEPTIBILITY <=0.12: Sensitive Coagulase negative Staphylococcus Oxacillin SUSCEPTIBILITY <=0.25: Sensitive Coagulase negative Staphylococcus Trimethoprim-sulfamethox azole SUSCEPTIBILITY <=10: Sensitive Coagulase negative Staphylococcus Vancomycin SUSCEPTIBILITY 2: Sensitive David Martini MD LAB - MICROBIOLOGY O MARY Performing Organization Address [facility] [facility] Co de Phone Number [facility] [address] [phone] * CULTURE AEROBIC (03/25/2014 12:24 PM CDT) Tissue specimen from lung (specimen) 03/25/2014 12:24 PM CDT [facility] - 03/29/2014 11:32 AM CDT From left chest tube Specimen Type->Lung The following orders were created for panel order CULTURE, AEROBIC & GRAM STAIN. Procedure Abnormality Status --------- ------ CULTURE, AEROBIC (ROUTINE)[[id number]] Abnormal Final result Gram Stain[[id number]] Please view results for these tests on the individual orders. David Martini MD LAB - MICROBIOLOGY O MARY Performing Organization Address [facility] Co de Phone Number [facility] [address] * (ABNORMAL) CBC W/O DIFFERENTIAL (03/25/2014 8:53 AM CDT) Only the most recent of2 resultswithin the time period is included. WBC 6.9 3.5 - 10.5 10 3/uL [facility] RBC 3.40(L) 4.30 - 5.70 10 6/uL [facility] Hemoglobin 11.3(L) 13.5 - 17.5 g/dL [facility] Hematocrit 33.0(L) 39.0 - 50.0 % [facility] MCV 97.1(H) 81.0 - 97.0 fL [facility] MCH 33.2 28.0 - 34.0 pg [facility] MCHC 34.2 32.0 - 36.0 g/dL [facility] Platelet Count 238 150 - 400 10 3/uL [facility] RDW-SD 47.2 36.0 - 50.0 fL [facility] RDW-CV 13.3 11.2 - 14.8 % [facility] MPV 9.4 9.3 - 12.8 fL [facility] nRBC Absolute 0.00 0 10 3/uL [facility] nRBC Auto 0.0 0 /100 WBC [facility] Blood specimen (specimen) BLOOD SPECIMEN / Unknown 03/25/2014 8:53 AM CDT 03/25/2014 9:19 AM CDT David Martini MD LAB - HEMATOLOGY ORD ERABLES [facility] [address] [place] [address] * (ABNORMAL) CULTURE RESPIRATORY LOWER (03/25/2014 12:02 AM CDT) Only the most recent of2 resultswithin the time period is included. Culture Sputum KLEBSIELLA PNEUMONIAE(A) [facility] Comment:Heavy Growth Klebsie lla Pneumoniae 03/25/2014 12:0 2 AM CDT 03/25/2014 12:09 AM CDT Narrative [facility] - 03/28/2014 4:06 PM CDT Additional growth of respiratory ailyn. Organism Antibiotic Method Susceptibility Klebsiella pneumoniae Amikacin SUSCEPTIBILITY <=2: Sensitive Klebsiella pneumoniae Ampicillin SUSCEPTIBILITY >=32: Resistant Klebsiella pneumoniae Ampicillin-sulbactam SUSCEPTIBIL ITY 4: Sensitive Klebsiella pneumoniae Cefepime SUSCEPTIBILITY <=1: Sensitive Klebsiella pneumoniae Ceftazidime SUSCEPTIBILITY <=1: Sensitive Klebsiella pneumoniae Ceftriaxone SUSCEPTIBILITY <=1: Sensitive Klebsiella pneumoniae Gentamicin SUSCEPTIBILITY <=1: Sensitive Klebsiella pneumoniae Imipenem SUSCEPTIBILITY <=0.25: Sensitive Klebsiella pneumoniae Levofloxacin SUSCEPTIBILITY <=0.12: Sensitive Klebsiella pneumoniae Piperacillin-tazobactam SUSCEPTI BILITY <=4: Sensitive Klebsiella pneumoniae Tobramycin SUSCEPTIBILITY <=1: Sensitive Klebsiella pneumoniae Trimethoprim-sulfa methoxazol e SUSCEPTIBILITY <=20: Sensitive Klebsiella pneumoniae Extended-Spectrum Beta-Lactamase SUSCEPTIBILITY Neg David Martini MD LAB - MICROBIOLOGY O MARY Performing Organization Address [facility] Co de Phone Number [facility] [address] [phone] * CULTURE SPUTUM+GRAM STAIN (03/25/2014 12:02 AM CDT) Only the most recent of2 resultswithin the time period is included. Sputum specimen (specimen) SPUTUM / Unknown 03/25/2014 12:02 AM CDT [facility] - 03/28/2014 4:06 PM CDT Specimen Type->Sputum The following orders were created for panel order Culture, Sputum and Smear. Procedure Abnormality Status --------- ------ Sputum culture[[id number]] Abnormal Final result Gram Stain[[id number]] Final result Please view results for these tests on the individual orders. David Martini MD LAB - MICROBIOLOGY O MARY Performing Organization Address [facility] Co de Phone Number [facility] [address] * GRAM STAIN SMEAR (03/25/2014 12:02 AM CDT) Only the most recent of2 resultswithin the time period is included. Gram Stain Many Polymorphonuclear Cells [facility] Gram Stain Many Gram Negative bacilli [facility] Gram Stain Many Gram Positive cocci in pairs, chains, and clusters [facility] Gram Stain Few Gram Positive bacilli [facility] 03/25/2014 12:0 2 AM CDT 03/25/2014 12:09 AM CDT Narrative [facility] - 03/25/2014 11:48 AM CDT Gram Stains are routinely screened for the presence of Polymorphonuclear Cells. David Martini MD LAB - MICROBIOLOGY O MARY Performing Organization Address [facility]/ZIP Co de Phone Number [address] [phone] * CULTURE URINE (03/24/2014 4:47 AM CDT) Culture Urine No Growth of >=100 CFU/ml after 48 Hours [facility] Urine specimen (specimen) URINE SPECIMEN OBTAINED BY CLEAN CATCH PROCEDURE / Unknown 03/24/2014 4:47 AM CDT 03/24/2014 5:39 AM CDT Narrative [facility] - 03/26/2014 2:47 PM CDT Specimen Type->Urine David Martini MD LAB - MICROBIOLOGY O MARY Performing Organization Address [facility] Co de Phone Number [address] [phone] * (ABNORMAL) URINALYSIS REFLEX TO MICROSCOPIC NO CULTURE (03/24/2014 4:46 AM CDT) Only the most recent of2 resultswithin the time period is included. Color UA Yellow Straw, Yellow, Colorless, Light Yellow [facility] Clarity UA Clear Clear [facility] Specific Preemption UA 1.007 1.001 - 1.030 [facility] pH UA 7.0 5.0 - 8.0 [facility] Protein UA Negative <=20 mg/dL [facility] Glucose UA Negative Negative mg/dL [facility] Ketone UA Trace(A) Negative mg/dL [facility] Bilirubin UA Negative Negative mg/dL [facility] Blood UA Negative Negative [facility] Nitrite UA Negative Negative [facility] Leukocyte Esterase Negative Negative [facility] Urobilinogen UA <2.0 <2.0 mg/dL [facility] RBC UA 2 0 - 8 /HPF [facility] Urine specimen (specimen) 03/24/2014 4:46 AM CDT 03/24/2014 5:39 AM CDT David Martini MD LAB - URINALYSIS ORD ERABLES Performing Organization Address City/[facility] Co de Phone Number [address] [phone] * HISTOPLASMA GALACTOMANNAN AG URINE (03/24/2014 4:46 AM CDT) Urine specimen (specimen) 03/24/2014 4:46 AM CDT 03/24/2014 5:39 AM CDT David Martini MD LAB - URINE CHEMISTR Y ORDERABLES Performing Organization Address [facility] Co de Phone Number [place] [phone] [address] * CULTURE BLOOD (03/24/2014 3:53 AM CDT) Only the most recent of2 resultswithin the time period is included. Culture Blood No Growth at 5 days [facility] Blood specimen (specimen) BLOOD SPECIMEN / Unknown 03/24/2014 3:53 AM CDT 03/24/2014 4:31 AM CDT Narrative [facility] - 03/29/2014 4:45 AM CDT Draw 15 minutes after Culture 1 from a different site Specimen Type->Blood David Martini MD LAB - MICROBIOLOGY O RDERABLES Performing Organization Address [facility] de Phone Number [address] [phone] * CT CHEST WO CONTRAST (03/23/2014 1:31 PM CDT) Anatomical Region Laterality Modality Chest Other Impressions 03/23/2014 5:24 PM CDT IMPRESSION: 1. Interval increase in left lower lobe consolidation representing evolving contusion, worsening atelectasis, and/or worsening infection/inflammation. Interval increase in small left pleural effusion. 2. Interval decrease in pneumomediastinum and small left pneumothorax. 3. Partially calcified and spiculated bilateral upper lobe pulmonary nodules may represent sequela of prior granulomatous disease; however, malignancy is not excluded. Please refer to PET/CT from today for further details. This report was approved by Pam Shaikh M.D. on 03/23/2014 4:13 PM . I, Dr. MAYELIN CROWDER M.D. have personally reviewed and interpreted this examination/study. This report was electronically signed by MAYELIN CROWDER M.D. on 03/23/2014 5:24 PM . Narrative 03/23/2014 5:24 PM CDT EXAMINATION: Computed tomography (CT) of the chest without contrast HISTORY: 58-year-old male with spiculated lung nodules. TECHNIQUE: CT of the chest was performed without the administration of intravenous contrast according to standard protocol. COMPARISON: CT chest on 03/20/2014 FINDINGS: A 2.8 cm spiculated left upper lobe nodule (image 10, series 4) and a 2.0 cm spiculated right upper lobe nodule (image 18, series 4) with eccentric calcification may represent scarring from prior infection/inflammation, although malignancy cannot be excluded. Bilateral emphysematous changes are seen. Left lower lobe consolidation has increased and may represent evolving contusion, worsening atelectasis, and/or worsening infection/inflammation. A small left pleural effusion has increased. Right lower lobe atelectasis has also increased. A left thoracostomy tube is stable in position. A small left pneumothorax has decreased in size. Heart size is normal. No pericardial effusion is present. Pneumomediastinum has decreased. The trachea is patent and midline. The remaining mediastinal structures appear normal. No mediastinal, hilar, supraclavicular, or axillary lymphadenopathy is seen. There is a left-sided three-vessel aortic arch. The aorta and main pulmonary arteries are normal in course and caliber. The remaining unenhanced vascular structures appear normal. Visualized portions of the upper abdominal viscera are unremarkable. Bone windows demonstrate no suspicious lytic or blastic lesions. The following fractures are again seen: T6 vertebral body, left posterior 4th-9th ribs, left T3 transverse process, left T5-T7 transverse processes, and left L1 transverse process. Procedure Note Mayelin Crowder MD - 02/06/2018 EXAMINATION: Computed tomography (CT) of the chest without contrast HISTORY: 58-year-old male with spiculated lung nodules. TECHNIQUE: CT of the chest was performed without the administration ofintravenous contrast according to standard protocol. COMPARISON: CT chest on 03/20/2014 FINDINGS: A 2.8 cm spiculated left upper lobe nodule (image 10, series 4) and a 2.0cm spiculated right upper lobe nodule (image 18, series 4) with eccentriccalcification may represent scarring from prior infection/inflammation,although malignancy cannot be excluded. Bilateral emphysematous changes are seen. Left lower lobe consolidationhas increased and may represent evolving contusion, worsening atelectasis,and/or worsening infection/inflammation. A small left pleural effusion hasincreased. Right lower lobe atelectasis has also increased. A left thoracostomy tube is stable inposition. A small left pneumothorax has decreased in size. Heart size is normal. No pericardial effusion is present.Pneumomediastinum has decreased. The trachea is patent and midline. Theremaining mediastinal structures appear normal. No mediastinal, hilar,supraclavicular, or axillary lymphadenopathy is seen. There is a left-sided three-vessel aortic arch. The aorta and mainpulmonary arteries are normal in course and caliber. The remainingunenhanced vascular structures appear normal. Visualized portions of the upper abdominal viscera are unremarkable. Bone windows demonstrate no suspicious lytic or blastic lesions. Thefollowing fractures are again seen: T6 vertebral body, left [id number] ribs, left T3 transverse process, left T5-T7 transverse processes,and left L1 transverse process. IMPRESSION IMPRESSION: 1. Interval increase in left lower lobe consolidation representingevolving contusion, worsening atelectasis, and/or worseninginfection/inflammation. Interval increase in small left pleuraleffusion. 2. Interval decrease in pneumomediastinum and small left pneumothorax. 3. Partially calcified and spiculated bilateral upper lobe pulmonarynodules may represent sequela of prior granulomatous disease; however,malignancy is not excluded. Please refer to PET/CT from today for furtherdetails. This report was approved by Pam Shaikh M.D. on 03/23/2014 4:13PM . I, Dr. MAYELIN CROWDER M.D. have personally reviewed and interpreted thisexamination/study. This report was electronically signed by MAYELIN CROWDER M.D. on03/23/2014 5:24 PM . David Martini MD CT ORDERABLES * PET CT WHOLE BODY (03/23/2014 1:19 PM CDT) Anatomical Region Laterality Modality Other Impressions 03/23/2014 4:26 PM CDT IMPRESSION: 1. Partially calcified spiculated right upper lobe pulmonary nodule with moderate metabolic activity. Also, there are a few mildly FDG avid densities in the right upper lung field. There is a spiculated more calcified left upper lobe pulmonary nodule demonstrating mild metabolic activity. Overall, the findings are more suggestive of a benign infectious/inflammatory process. Malignancy cannot be completely excluded as low grade pulmonary malignancies such as bronchoalveolar carcinoma and carcinoid typically demonstrate mild metabolic activity. Recommend biopsy of the partially spiculated right upper lobe pulmonary nodule. 2. Interval increased size of the left lower lobe region of consolidation with focal areas of intense metabolic activity which is likely infectious. 3. Intense focus of FDG uptake fusing to herniated bowel in the left lower abdomen which is likely inflammatory. 4. There is moderate to intense FDG uptake in fracture sites in multiple left posterior ribs, thoracic and lumbar vertebrae as above which is consistent with recent trauma. This report was approved by DIMA VASQUEZ M.D. on 03/23/2014 4:17 PM . I, Dr. TRAN ACEVEDO M.D. have personally reviewed and interpreted this examination/study. This report was electronically signed by TRAN ACEVEDO M.D. on 03/23/2014 4:26 PM . Narrative 03/23/2014 4:26 PM CDT Procedure: PET/CT Study. Referring Physician: Dr. David Martini. HISTORY: 58-year-old man with lung lesions. Patient was admitted on 03/20/2014 for trauma treatment. The patient fell 15 feet from a ladder onto his back grassy surface. CT chest/abdomen/pelvis study from 03/20/2014 demonstrated bilateral upper lobe partially calcified and spiculated pulmonary nodules which were thought to represent granulomatous disease, however malignancy could not be excluded on the right side. PET/CT study was recommended for further evaluation. There was also pneumomediastinum, small left pneumothorax, left lower lobe consolidation which was thought to represent contusion and/or aspiration in setting trauma. Evaluate for initial treatment strategy. TECHNIQUE: 7.8 mCi of F-18 FDG by IV in the right antecubital fossa. PET/CT image acquisition from top of the head to the feet after approximately 88 minutes post-injection with the CT being low-dose, non-contrast. No separate report for the CT was generated since it was used for attenuation correction and anatomic localization. Blood glucose level at the time of injection was 104 mg/dl. FINDINGS: There are no prior PET/CT studies available for comparison. Comparison is made to CT chest/abdomen/pelvis study from 03/20/2014. Head and neck: There is no FDG uptake in the soft tissues of the head and neck to indicate malignancy. Normal physiologic metabolic activity seen in the brain with no focal uptake to indicate malignancy. Chest: Right apical FDG avid density located medially measuring 0.8 cm, unchanged in size compared to CT chest study from 03/20/2014, with SUV Max 1.6. There is a mildly FDG avid subpleural focus located anteriorly in the right middle lobe measuring 0.6 cm with SUV Max 1.7. The previously identified partially calcified spiculated right upper lobe pulmonary nodule measures 2.0 cm with SUV Max 2.3. There is consolidation/atelectasis in the right lung base located posteriorly. The previously identified partially calcified spiculated left upper lobe pulmonary nodule measures 2.7 x 1.9 cm with SUV Max 1.7. The previously identified region of left lower lobe consolidation appears increased in size compared to CT chest study from 03/20/2014 and demonstrates focal areas of intense metabolic activity. Reference focal region of intense metabolic activity within the consolidation located laterally near the left major fissure measuring 1.0 cm with SUV Max 3.6. Today's low-dose CT study does not demonstrate aspirated material in the right mainstem bronchus as was previously seen on CT chest study from 03/20/2014. There is no FDG avid mediastinal or hilar lymphadenopathy. There are normal size lymph nodes involving the AP window, precarinal regions demonstrating mild metabolic activity which are more likely reactive. Reference AP window lymph node measuring 1.0 x 0.7 cm with SUV Max 1.8. There is a left chest thoracotomy tube with mild FDG uptake at the insertion site in the chest wall between the left fourth and fifth lateral ribs which is inflammatory. Interval decrease in size of the left pneumothorax compared to CT chest study from 03/20/2014 which is consistent with chest tube treatment. Heart is normal size with no evidence of pericardial effusion. Calcification of the left anterior descending coronary artery. Abdomen and pelvis: There is an intensely FDG avid focus in the anterior left lower abdomen measuring 2.1 x 1.5 cm with SUV Max 4.5 which appears to be fusing to herniated bowel and is more likely inflammatory. The large bowel appears distended with air. Normal physiologic metabolic activity seen in the liver with no focal uptake to indicate malignancy. Calcification of the abdominal aorta and bilateral iliac vessels. Elsewhere the visceral organs of the abdomen and pelvis are unremarkable. For reference, SUV max of liver is 1.9. Musculoskeletal: There is no focal FDG uptake to indicate skeletal malignancy. There is a focus of intense metabolic activity in the superficial soft tissue of the right arm just at the border of the PET/CT imaging which is consistent with injection site activity. There is internal fixation hardware in the right femur with no FDG uptake to indicate loosening. The hardware is also seen in the right tibia. The multiple rib fractures involving the left posterior 4th-9th ribs with moderate to intense FDG uptake which is consistent with trauma. The compression fracture at T6 demonstrates FDG uptake (SUV Max 3.1). In addition, the transverse process fractures previously identified on the left side of T3, T5-T7, and L1-L4 demonstrate moderate to intense FDG uptake which is consistent with recent trauma. Procedure Note Tran Acevedo MD - 02/06/2018 Procedure: PET/CT Study. Referring Physician: Dr. David Martini. HISTORY: 58-year-old man with lung lesions. Patient was admitted on03/20/2014 for trauma treatment. The patient fell 15 feet from a ladderonto his back grassy surface. CT chest/abdomen/pelvis study from 03/20/2014demonstrated bilateral upper lobe partially calcified and spiculated pulmonary nodules which were thought torepresent granulomatous disease, however malignancy could not be excludedon the right side. PET/CT study was recommended for further evaluation.There was also pneumomediastinum, small left pneumothorax, left lower lobe consolidation which was thoughtto represent contusion and/or aspiration in setting trauma. Evaluate forinitial treatment strategy. TECHNIQUE: 7.8 mCi of F-18 FDG by IV in the right antecubital fossa.PET/CT image acquisition from top of the head to the feet afterapproximately 88 minutes post-injection with the CT being low-dose,non-contrast. No separate report for the CT was generated since it was used for attenuation correction and anatomiclocalization. Blood glucose level at the time of injection was 104mg/dl. FINDINGS: There are no prior PET/CT studies available for comparison.Comparison is made to CT chest/abdomen/pelvis study from 03/20/2014. Head and neck: There is no FDG uptake in the soft tissues of the head andneck to indicate malignancy. Normal physiologic metabolic activity seen inthe brain with no focal uptake to indicate malignancy. Chest: Right apical FDG avid density located medially measuring 0.8 cm,unchanged in size compared to CT chest study from 03/20/2014, with SUV Max1.6. There is a mildly FDG avid subpleural focus located anteriorly in theright middle lobe measuring 0.6 cm with SUV Max 1.7. The previously identified partially calcifiedspiculated right upper lobe pulmonary nodule measures 2.0 cm with SUV Max2.3. There is consolidation/atelectasis in the right lung base locatedposteriorly. The previously identified partially calcified spiculated left upper lobe pulmonary nodule measures2.7 x 1.9 cm with SUV Max 1.7. The previously identified region of leftlower lobe consolidation appears increased in size compared to CT cheststudy from 03/20/2014 and demonstrates focal areas of intense metabolic activity. Reference focal region ofintense metabolic activity within the consolidation located laterally nearthe left major fissure measuring 1.0 cm with SUV Max 3.6. Today's low-doseCT study does not demonstrate aspirated material in the right mainstem bronchus as was previously seenon CT chest study from 03/20/2014. There is no FDG avid mediastinal orhilar lymphadenopathy. There are normal size lymph nodes involving the APwindow, precarinal regions demonstrating mild metabolic activity which are more likely reactive.Reference AP window lymph node measuring 1.0 x 0.7 cm with SUV Max 1.8.There is a left chest thoracotomy tube with mild FDG uptake at theinsertion site in the chest wall between the left fourth and fifth lateral ribs which is inflammatory. Intervaldecrease in size of the left pneumothorax compared to CT chest study from03/20/2014 which is consistent with chest tube treatment. Heart is normalsize with no evidence of pericardial effusion. Calcification of the left anterior descending coronary artery. Abdomen and pelvis: There is an intensely FDG avid focus in the anteriorleft lower abdomen measuring 2.1 x 1.5 cm with SUV Max 4.5 which appearsto be fusing to herniated bowel and is more likely inflammatory. The largebowel appears distended with air. Normal physiologic metabolic activity seen in the liver with no focaluptake to indicate malignancy. Calcification of the abdominal aorta andbilateral iliac vessels. Elsewhere the visceral organs of the abdomen andpelvis are unremarkable. For reference, SUV max of liver is 1.9. Musculoskeletal: There is no focal FDG uptake to indicate skeletalmalignancy. There is a focus of intense metabolic activity in thesuperficial soft tissue of the right arm just at the border of the PET/CTimaging which is consistent with injection site activity. There is internal fixation hardware in the right femur with noFDG uptake to indicate loosening. The hardware is also seen in the righttibia. The multiple rib fractures involving the left posterior 4th-9thribs with moderate to intense FDG uptake which is consistent with trauma. The compression fracture at [id number] FDG uptake (SUV Max 3.1). In addition, the transverse processfractures previously identified on the left side of T3, T5-T7, and [id number] moderate to intense FDG uptake which is consistent with recent trauma. IMPRESSION IMPRESSION: 1. Partially calcified spiculated right upper lobe pulmonary nodule withmoderate metabolic activity. Also, there are a few mildly FDG aviddensities in the right upper lung field. There is a spiculated morecalcified left upper lobe pulmonary nodule demonstrating mild metabolic activity. Overall, the findings are moresuggestive of a benign infectious/inflammatory process. Malignancy cannotbe completely excluded as low grade pulmonary malignancies such asbronchoalveolar carcinoma and carcinoid typically demonstrate mild metabolic activity. Recommend biopsy of thepartially spiculated right upper lobe pulmonary nodule. 2. Interval increased size of the left lower lobe region of consolidationwith focal areas of intense metabolic activity which is likelyinfectious. 3. Intense focus of FDG uptake fusing to herniated bowel in the leftlower abdomen which is likely inflammatory. 4. There is moderate to intense FDG uptake in fracture sites in multipleleft posterior ribs, thoracic and lumbar vertebrae as above which isconsistent with recent trauma. This report was approved by DIMA VASQUEZ M.D. on 03/23/2014 4:17 PM . I, Dr. TRAN ACEVEDO M.D. have personally reviewed and interpreted thisexamination/study. This report was electronically signed by TRAN ACEVEDO M.D. on 03/23/20144:26 PM . David Martini MD NM ORDERABLES * GLUCOSE - POINT OF CARE (AMB) [facility] (03/23/2014 11:12 AM CDT) Only the most recent of2 resultswithin the time period is included. Pathologist [facility] Glucose POCT 104 mg/dL [facility] Capillary blood specimen (specimen) 03/23/2014 11:12 AM CDT Tran Acevedo MD LAB - POINT OF CARE ORDERABLES Performing Organization Address [facility] Co de Phone Number [facility] * HISTOPLASMA ANTIGEN BLOOD (03/22/2014 11:18 AM CDT) Blood specimen (specimen) BLOOD SPECIMEN / Unknown 03/22/2014 11:18 AM CDT 03/22/2014 11:18 AM CDT David Martini MD LAB - CHEMISTRY [facility] Performing Organization Address [facility]/ZIP Co de Phone Number [place] [phone] [address] * (ABNORMAL) HEPATIC FUNCTION PANEL (03/22/2014 2:50 AM CDT) Pathologist [facility] Bilirubin Conjugated 0.6(H) 0.0 - 0.5 mg/dL [facility] Bilirubin Unconjugated 0.6 Unconjugated Bilirubin is a calculated value: Reference ranges have not been established. mg/dL [facility] Albumin/Globulin Ratio 0.8(L) 1.1 - 2.3 [facility] Protein Total 6.9 6.0 - 8.3 g/dL [facility] Albumin 3.0(L) 3.4 - 5.0 g/dL [facility] Bilirubin Total 1.2 0.2 - 1.2 mg/dL [facility] Alkaline Phosphatase 62 40 - 150 Units/L [facility] ALT 50 0 - 55 Units/L [facility] AST 61(H) 5 - 34 Units/L [facility] Blood specimen (specimen) BLOOD SPECIMEN / Unknown 03/22/2014 2:50 AM CDT 03/22/2014 3:09 AM CDT David Martini MD LAB - CHEMISTRY [facility] Performing Organization Address City/[facility]/ZIP Co de Phone Number [address] [phone] * LIPASE BLOOD (03/22/2014 2:50 AM CDT) Only the most recent of2 resultswithin the time period is included. Lipase 16 8 - 78 Units/L [facility] Blood specimen (specimen) BLOOD SPECIMEN / Unknown 03/22/2014 2:50 AM CDT 03/22/2014 3:09 AM CDT David Martini MD LAB - CHEMISTRY [facility] Performing Organization Address [facility]/ZIP Co de Phone Number [address] [phone] * (ABNORMAL) DRUG ABUSE PANEL 10-20+ETHANOL URINE NO CONFIRM (03/21/2014 5:49 AM CDT) Pathologist [facility] Amphetamines Screen Urine Negative Negative : < 1000 ng/mL [facility] Barbiturates Screen Urine Negative Negative : < 200 ng/mL [facility] Benzodiazepine Screen Urine Negative Negative : < 200 ng/mL [facility] Opiates Urine Positive(A) Negative : < 300 ng/mL [facility] Comment: Positive urine opiate screening results should be confirmed by another generally accepted non-immunological method such as gas chromatography or mass spectrometry. Cocaine Metabolites Urine Negative Negative : < 300 ng/mL [facility] Phencyclidine Screen Urine Negative Negative : < 25 ng/ml [facility] Cannabinoids Screen Urine Negative Negative : <50 ng/mL [facility] Methadone Screen Urine Negative Negative : < 300 ng/mL [facility] Urine specimen (specimen) 03/21/2014 5:49 AM CDT 03/21/2014 5:56 AM CDT Narrative [facility] - 03/21/2014 6:15 AM CDT The Urine Toxicology Screening Panel does not screen for Propoxyphene, Meprobamate, Carisoprodol, Trazodone, imas-xld-rlyqkht medications and/or volatiles (Acetone, Isopropanol, Methanol or Ethylene Glycol). Ethanol, Salicylate, Acetaminophen, Tricyclic Antidepressants and several therapeutic drugs may be individually assayed in serum or plasma specimen. Toxicology testing by the [facility] is an aid to medical diagnosis and treatment of patients. No documented chain of custody was maintained. Results are intended to be used for clinical purposes only. David Martini MD LAB - URINE CHEMISTR Y ORDERABLES [address] [phone] * CT CHEST ABDOMEN PELVIS W CONT (03/20/2014 7:57 PM CDT) Anatomical Region Laterality Modality Chest, Abdomen, Pelvis Other Impressions 03/21/2014 4:34 PM CDT IMPRESSION: 1. Pneumomediastinum. 2. Small left pneumothorax. 3. Left lower lobe consolidation may represent contusion and/or aspiration in the setting of trauma. 4. Bilateral upper lobe partially-calcified and spiculated pulmonary nodules may represent sequela of prior granulomatous disease; however, malignancy cannot be excluded on the right. Comparison with prior studies, if available, is recommended. Otherwise, followup imaging in three months or PET/CT is recommended. 5. Multiple rib fractures, transverse process fractures, and a T6 compression fracture. 6. No evidence of acute visceral or vascular injury in the abdomen or pelvis. Preliminary findings discussed with Dr. Liang by Dr. Estrada on 03/20/2014 at 2043 hours. This report was approved by Pam Shaikh M.D. on 03/21/2014 10:12 AM . I, Dr. Mike COVARRUBIAS M.D. have personally reviewed and interpreted this examination/study. This report was electronically signed by Mike COVARRUBIAS M.D. on 03/21/2014 4:34 PM . Narrative 03/21/2014 4:34 PM CDT EXAMINATION: Computed tomography (CT) of the chest, abdomen, and pelvis with contrast HISTORY: 58-year-old male with pain after trauma (fall from ladder). TECHNIQUE: CT of the chest, abdomen, and pelvis was performed after the uneventful administration of 100 mL of Omnipaque 350 intravenous contrast according to standard protocol. COMPARISON: None available FINDINGS: Chest: Bilateral emphysematous changes are present. A 2.8 cm partially calcified, spiculated left upper lobe nodule is identified (image 17, series 4) and likely represents scarring from prior infection/inflammation. A 2.0 cm partially calcified, spiculated right upper lobe nodule is also visible (image 32, series 4) and may represent nodular scarring, although malignancy cannot be excluded. Left lower lobe consolidation may represent contusion and/or aspiration in the setting of trauma. Aspirated material is seen within the right mainstem bronchus. No pleural effusion or focal pleural thickening is identified. There is a small left pneumothorax. A left thoracostomy tube has been placed. Heart size is normal. No pericardial effusion is present. There is a left-sided three-vessel aortic arch. The enhanced vascular structures appear normal. There is pneumomediastinum. The trachea is patent and midline. The remaining mediastinal structures appear normal. No mediastinal, hilar, supraclavicular, or axillary lymphadenopathy is seen. Abdomen/Pelvis: The liver enhances homogenously. No focal intrahepatic lesions are seen. The gallbladder is normal without evidence of wall thickening, pericholecystic fluid, or gallstones. The intrahepatic and extrahepatic bile ducts are nondilated. The spleen enhances homogenously without focal lesions. The pancreas is normal. The adrenal glands are normal. The kidneys enhance symmetrically. There is no evidence of hydronephrosis or hydroureter. The stomach, small bowel, and large bowel are normal in caliber without evidence of wall thickening or obstruction. The appendix appears normal without evidence of appendicolith or surrounding inflammatory changes. There is no evidence of lymphadenopathy. No free air or free fluid is identified within the abdomen. The bladder is distended with fluid and appears normal. The remaining pelvic organs appear normal. No free fluid is seen within the pelvis. The abdominal aorta is normal in course and caliber. The remaining enhanced abdominal vascular structures are normal. Atherosclerotic calcifications are seen within the infrarenal abdominal aorta and iliac arteries. Osseous: Bone windows demonstrate no suspicious lytic or blastic lesions. Internal fixation hardware in the proximal right femur is partially imaged. Left posterior 4th-9th rib fractures are present. A T6 compression fracture is seen with minimal vertebral body height loss. Fractures of the left T3, T5-T7 and L1-L4 transverse processes are also noted. Procedure Note Ankita Covarrubias MD - 02/06/2018 EXAMINATION: Computed tomography (CT) of the chest, abdomen, and pelviswith contrast HISTORY: 58-year-old male with pain after trauma (fall from ladder). TECHNIQUE: CT of the chest, abdomen, and pelvis was performed after theuneventful administration of 100 mL of Omnipaque 350 intravenous contrastaccording to standard protocol. COMPARISON: None available FINDINGS: Chest: Bilateral emphysematous changes are present. A 2.8 cm partially calcified,spiculated left upper lobe nodule is identified (image 17, series 4) andlikely represents scarring from prior infection/inflammation. A 2.0 cmpartially calcified, spiculated right upper lobe nodule is also visible (image 32, series 4) and mayrepresent nodular scarring, although malignancy cannot be excluded. Leftlower lobe consolidation may represent contusion and/or aspiration in thesetting of trauma. Aspirated material is seen within the right mainstem bronchus. No pleural effusion or focalpleural thickening is identified. There is a small left pneumothorax. Aleft thoracostomy tube has been placed. Heart size is normal. No pericardial effusion is present. There is aleft-sided three-vessel aortic arch. The enhanced vascular structuresappear normal. There is pneumomediastinum. The trachea is patent andmidline. The remaining mediastinal structures appear normal. No mediastinal, hilar, supraclavicular, or axillarylymphadenopathy is seen. Abdomen/Pelvis: The liver enhances homogenously. No focal intrahepatic lesions are seen.The gallbladder is normal without evidence of wall thickening,pericholecystic fluid, or gallstones. The intrahepatic and extrahepaticbile ducts are nondilated. The spleen enhances homogenously without focal lesions. The pancreas is normal. The adrenalglands are normal. The kidneys enhance symmetrically. There is no evidenceof hydronephrosis or hydroureter. The stomach, small bowel, and large bowel are normal in caliber withoutevidence of wall thickening or obstruction. The appendix appears normalwithout evidence of appendicolith or surrounding inflammatory changes.There is no evidence of lymphadenopathy. No free air or free fluid is identified within theabdomen. The bladder is distended with fluid and appears normal. The remainingpelvic organs appear normal. No free fluid is seen within the pelvis. The abdominal aorta is normal in course and caliber. The remainingenhanced abdominal vascular structures are normal. Atheroscleroticcalcifications are seen within the infrarenal abdominal aorta and iliacarteries. Osseous: Bone windows demonstrate no suspicious lytic or blastic lesions. Internalfixation hardware in the proximal right femur is partially imaged. Leftposterior 4th-9th rib fractures are present. A T6 compression fracture isseen with minimal vertebral body height loss. Fractures of the left T3, T5-T7 and L1-L4 transverseprocesses are also noted. IMPRESSION IMPRESSION: 1. Pneumomediastinum. 2. Small left pneumothorax. 3. Left lower lobe consolidation may represent contusion and/or aspirationin the setting of trauma. 4. Bilateral upper lobe partially-calcified and spiculated pulmonarynodules may represent sequela of prior granulomatous disease; however,malignancy cannot be excluded on the right. Comparison with prior studies,if available, is recommended. Otherwise, followup imaging in three months or PET/CT is recommended. 5. Multiple rib fractures, transverse process fractures, and a [id number] fracture. 6. No evidence of acute visceral or vascular injury in the abdomen orpelvis. Preliminary findings discussed with Dr. Liang by Dr. Estrada on 03/20/2014t 2043 hours. This report was approved by Pam Shaikh M.D. on 03/21/2014 10:12AM . I, Dr. Mike COVARRUBIAS M.D. have personally reviewed and interpreted thisexamination/study. This report was electronically signed by Mike COVARRUBIAS M.D. on03/21/2014 4:34 PM . Frances Velázquez MD CT ORDERABLES * CT LUMBAR SPINE WO CONTRAST (03/20/2014 7:57 PM CDT) Anatomical Region Laterality Modality Spine Other Impressions 03/21/2014 9:52 AM CDT IMPRESSION: 1. No acute intracranial process. 2. Acute T6 burst fracture with minimal height loss and approximately 2 mm of retropulsion. Fractures of the left T3, T5, T6, and T7 transverse processes. 3. Fractures of the left L1, L2, and L3 transverse processes appear acute. Chronic appearing L4 transverse processes. Multilevel degenerative disc and joint disease of the lumbar spine as described above. Small osseous fragment anterior to the right sacroiliac joint may represent a small fracture. 4. No evidence of acute fracture in the cervical spine. Multilevel degenerative disc and joint disease of the cervical spine as described above. 5. Small left pneumothorax status post left thoracostomy tube placement. Left lower lobe atelectasis/consolidation representing pulmonary contusion and/or aspiration in the setting of trauma. Posterior left fourth, fifth, sixth, eighth, and ninth rib fractures. 6. Spiculated, partially calcified left upper lobe mass and adjacent nodule may represent prior granulomatous disease such as tuberculosis or fungal infection, however malignancy is not excluded. 7. Pneumomediastinum adjacent to the descending thoracic aorta with crescentic hypoattenuation within the anterior aspect of the aorta. This may represent pulsation artifact, however, aortic dissection can not be excluded. See the dedicated body CT report for further details. Preliminary findings were entered into a note on [facility] By Dr. Lindsey Reich on 03/20/2014 at 8:58 PM. This report was approved by Sumeet Rasheed M.D. on 03/21/2014 8:17 AM . I, Dr. LISA RG M.D. have personally reviewed and interpreted this examination/study. This report was electronically signed by LISA RG M.D. on 03/21/2014 9:52 AM . Narrative 03/21/2014 9:52 AM CDT EXAMINATION: 1. Computed tomography (CT) of the head without contrast 2. CT of the cervical spine without contrast 3. CT of the thoracic spine without contrast 4. CT of the lumbar spine without contrast HISTORY: Pain after fall from ladder TECHNIQUE: CT of the head and cervical spine were performed without contrast according to standard protocol. Reformatted axial, sagittal, and coronal images of the thoracic and lumbar spine were obtained by the technologist from a concurrently performed body CT and sent to the workstation for review. FINDINGS: No prior study is available for comparison. Head: No acute intra- or extra-axial fluid collections are identified. The ventricles are of normal size, shape, and morphology. The basilar cisterns are patent. No mass effect or midline shift is seen. The franco-white matter differentiation is normal. Other than right maxillary sinus and ethmoid air cell disease, the visualized portions of the orbits, paranasal sinuses, and mastoids appear normal. No acute fracture is identified. Cervical spine: There is reversal of the normal cervical lordosis. Vertebral bodies are normal in height without evidence of acute fracture. The craniocervical junction is normal. Multilevel degenerative disc disease is noted, most prominent at C5-6, resulting in up to severe central canal stenosis at C5-6 and C6-7. Multilevel facet and uncovertebral arthropathy is noted, most prominent at C5-6, resulting in up to severe neuroforaminal stenosis on the left at C4-5 and right at C6-7. A small left apical pneumothorax is noted. Pneumomediastinum is partially visualized. Thoracic spine: The alignment is normal. An acute burst fracture of the T6 vertebral body with minimal height loss extends to the left pedicle. There is approximately 2 mm of retropulsion of the fracture fragment. A subtle lucency in the superior endplate of T3 may represent an anterosuperior fracture. Fractures of the left T3, T5, T6, and T7 transverse processes are noted. Fractures of the left posterior fourth, fifth, sixth, eighth, and ninth ribs are noted. Mild multilevel degenerative disc disease is noted without central canal stenosis. Multilevel facet arthropathy is noted. No neural foraminal stenosis is seen. A small left hemopneumothorax is noted with an apically oriented left chest tube. Emphysematous changes are noted bilaterally. Left lower lobe atelectasis/consolidation may represent pulmonary contusion and/or aspiration in the setting of trauma. Aspirated material is seen in the bilateral mainstem bronchi. Pneumomediastinum is adjacent to the descending thoracic aorta with a small crescentic shaped hypoattenuating area within the anterior aspect of the aorta, this may represent pulsation artifact, however aortic dissection cannot be excluded. A spiculated, partially calcified mass and adjacent nodule in the left upper lobe may represent prior granulomatous disease such as tuberculosis or fungal infection, however malignancy is not excluded. Multiple chronic, healed rib deformities are noted. Lumbar spine: There is straightening of the normal lumbar lordosis with partial sacralization of L5 on the left. Levocurvature of the lumbar spine is noted. Vertebral bodies are normal in height without evidence of acute fracture. Fractures of the left L1, L2 and L3 transverse processes are noted. Left L4 transverse processes appears well corticated, likely chronic. Multilevel degenerative disc disease is noted, most prominent at L4-5 and L5-S1, with sclerotic endplate changes of the inferior endplate of L4 and superior L5, resulting in up to moderate central canal stenosis. Multilevel facet arthropathy is noted resulting in up to severe neural foraminal stenosis at L4-5 bilaterally. A small osseous fragment is noted anterior to the right sacroiliac joint may represent a small fracture. Atherosclerotic calcification of the abdominal aorta is noted. Procedure Note Lisa Rg MD - 02/06/2018 EXAMINATION: 1. Computed tomography (CT) of the head without contrast 2. CT of the cervical spine without contrast 3. CT of the thoracic spine without contrast 4. CT of the lumbar spine without contrast HISTORY: Pain after fall from ladder TECHNIQUE: CT of the head and cervical spine were performed withoutcontrast according to standard protocol. Reformatted axial, sagittal, andcoronal images of the thoracic and lumbar spine were obtained by thetechnologist from a concurrently performed body CT and sent to the workstation for review. FINDINGS: No prior study is available for comparison. Head: No acute intra- or extra-axial fluid collections are identified. Theventricles are of normal size, shape, and morphology. The basilar cisternsare patent. No mass effect or midline shift is seen. The franco-white matterdifferentiation is normal. Other than right maxillary sinus and ethmoid air cell disease, the visualizedportions of the orbits, paranasal sinuses, and mastoids appear normal. Noacute fracture is identified. Cervical spine: There is reversal of the normal cervical lordosis. Vertebral bodies arenormal in height without evidence of acute fracture. The craniocervicaljunction is normal. Multilevel degenerative disc disease is noted, mostprominent at C5-6, resulting in up to severe central canal stenosis at C5-6 and C6-7. Multilevel facet anduncovertebral arthropathy is noted, most prominent at C5-6, resulting inup to severe neuroforaminal stenosis on the left at C4-5 and right atC6-7. A small left apical pneumothorax is noted. Pneumomediastinum is partially visualized. Thoracic spine: The alignment is normal. An acute burst fracture of the T6 vertebral bodywith minimal height loss extends to the left pedicle. There isapproximately 2 mm of retropulsion of the fracture fragment. A subtlelucency in the superior endplate of T3 may represent an anterosuperior fracture. Fractures of the left T3, T5, T6,and T7 transverse processes are noted. Fractures of the left posteriorfourth, fifth, sixth, eighth, and ninth ribs are noted. Mild multileveldegenerative disc disease is noted without central canal stenosis. Multilevel facet arthropathy is noted. Noneural foraminal stenosis is seen. A small left hemopneumothorax is notedwith an apically oriented left chest tube. Emphysematous changes are notedbilaterally. Left lower lobe atelectasis/consolidation may represent pulmonary contusion and/oraspiration in the setting of trauma. Aspirated material is seen in thebilateral mainstem bronchi. Pneumomediastinum is adjacent to thedescending thoracic aorta with a small crescentic shaped hypoattenuating area within the anterior aspect of the aorta, thismay represent pulsation artifact, however aortic dissection cannot beexcluded. A spiculated, partially calcified mass and adjacent nodule inthe left upper lobe may represent prior granulomatous disease such as tuberculosis or fungal infection,however malignancy is not excluded. Multiple chronic, healed ribdeformities are noted. Lumbar spine: There is straightening of the normal lumbar lordosis with partialsacralization of L5 on the left. Levocurvature of the lumbar spine isnoted. Vertebral bodies are normal in height without evidence of acutefracture. Fractures of the left L1, L2 and L3 transverse processes are noted. Left L4 transverse processes appears wellcorticated, likely chronic. Multilevel degenerative disc disease is noted,most prominent at L4-5 and L5-S1, with sclerotic endplate changes of theinferior endplate of L4 and superior L5, resulting in up to moderate central canal stenosis.Multilevel facet arthropathy is noted resulting in up to severe neuralforaminal stenosis at L4-5 bilaterally. A small osseous fragment is notedanterior to the right sacroiliac joint may represent a small fracture. Atherosclerotic calcification of the abdominalaorta is noted. IMPRESSION IMPRESSION: 1. No acute intracranial process. 2. Acute T6 burst fracture with minimal height loss and approximately 2 mmof retropulsion. Fractures of the left T3, T5, T6, and T7 transverseprocesses. 3. Fractures of the left L1, L2, and L3 transverse processes appear acute.Chronic appearing L4 transverse processes. Multilevel degenerative discand joint disease of the lumbar spine as described above. Small osseousfragment anterior to the right sacroiliac joint may represent a small fracture. 4. No evidence of acute fracture in the cervical spine. Multileveldegenerative disc and joint disease of the cervical spine as describedabove. 5. Small left pneumothorax status post left thoracostomy tube placement.Left lower lobe atelectasis/consolidation representing pulmonary contusionand/or aspiration in the setting of trauma. Posterior left fourth, fifth,sixth, eighth, and ninth rib fractures. 6. Spiculated, partially calcified left upper lobe mass and adjacentnodule may represent prior granulomatous disease such as tuberculosis orfungal infection, however malignancy is not excluded. 7. Pneumomediastinum adjacent to the descending thoracic aorta withcrescentic hypoattenuation within the anterior aspect of the aorta. Thismay represent pulsation artifact, however, aortic dissection can not beexcluded. See the dedicated body CT report for further details. Preliminary findings were entered into a note on [facility] By Dr. Lindsey Bryant 03/20/2014 at 8:58 PM. This report was approved by Sumeet Rasheed M.D. on 03/21/2014 8:17 AM. I, Dr. LISA RG M.D. have personally reviewed and interpreted thisexamination/study. This report was electronically signed by LISA RG M.D. on 03/21/20149:52 AM . Frances Velázquez MD CT ORDERABLES * CT THORACIC SPINE WO CONTRAST (03/20/2014 7:57 PM CDT) Anatomical Region Laterality Modality Spine Other Impressions 03/21/2014 9:52 AM CDT IMPRESSION: 1. No acute intracranial process. 2. Acute T6 burst fracture with minimal height loss and approximately 2 mm of retropulsion. Fractures of the left T3, T5, T6, and T7 transverse processes. 3. Fractures of the left L1, L2, and L3 transverse processes appear acute. Chronic appearing L4 transverse processes. Multilevel degenerative disc and joint disease of the lumbar spine as described above. Small osseous fragment anterior to the right sacroiliac joint may represent a small fracture. 4. No evidence of acute fracture in the cervical spine. Multilevel degenerative disc and joint disease of the cervical spine as described above. 5. Small left pneumothorax status post left thoracostomy tube placement. Left lower lobe atelectasis/consolidation representing pulmonary contusion and/or aspiration in the setting of trauma. Posterior left fourth, fifth, sixth, eighth, and ninth rib fractures. 6. Spiculated, partially calcified left upper lobe mass and adjacent nodule may represent prior granulomatous disease such as tuberculosis or fungal infection, however malignancy is not excluded. 7. Pneumomediastinum adjacent to the descending thoracic aorta with crescentic hypoattenuation within the anterior aspect of the aorta. This may represent pulsation artifact, however, aortic dissection can not be excluded. See the dedicated body CT report for further details. Preliminary findings were entered into a note on [facility] By Dr. Lindsey Reich on 03/20/2014 at 8:58 PM. This report was approved by Sumeet Rasheed M.D. on 03/21/2014 8:17 AM . I, Dr. LISA RG M.D. have personally reviewed and interpreted this examination/study. This report was electronically signed by LISA RG M.D. on 03/21/2014 9:52 AM . Narrative 03/21/2014 9:52 AM CDT EXAMINATION: 1. Computed tomography (CT) of the head without contrast 2. CT of the cervical spine without contrast 3. CT of the thoracic spine without contrast 4. CT of the lumbar spine without contrast HISTORY: Pain after fall from ladder TECHNIQUE: CT of the head and cervical spine were performed without contrast according to standard protocol. Reformatted axial, sagittal, and coronal images of the thoracic and lumbar spine were obtained by the technologist from a concurrently performed body CT and sent to the workstation for review. FINDINGS: No prior study is available for comparison. Head: No acute intra- or extra-axial fluid collections are identified. The ventricles are of normal size, shape, and morphology. The basilar cisterns are patent. No mass effect or midline shift is seen. The franco-white matter differentiation is normal. Other than right maxillary sinus and ethmoid air cell disease, the visualized portions of the orbits, paranasal sinuses, and mastoids appear normal. No acute fracture is identified. Cervical spine: There is reversal of the normal cervical lordosis. Vertebral bodies are normal in height without evidence of acute fracture. The craniocervical junction is normal. Multilevel degenerative disc disease is noted, most prominent at C5-6, resulting in up to severe central canal stenosis at C5-6 and C6-7. Multilevel facet and uncovertebral arthropathy is noted, most prominent at C5-6, resulting in up to severe neuroforaminal stenosis on the left at C4-5 and right at C6-7. A small left apical pneumothorax is noted. Pneumomediastinum is partially visualized. Thoracic spine: The alignment is normal. An acute burst fracture of the T6 vertebral body with minimal height loss extends to the left pedicle. There is approximately 2 mm of retropulsion of the fracture fragment. A subtle lucency in the superior endplate of T3 may represent an anterosuperior fracture. Fractures of the left T3, T5, T6, and T7 transverse processes are noted. Fractures of the left posterior fourth, fifth, sixth, eighth, and ninth ribs are noted. Mild multilevel degenerative disc disease is noted without central canal stenosis. Multilevel facet arthropathy is noted. No neural foraminal stenosis is seen. A small left hemopneumothorax is noted with an apically oriented left chest tube. Emphysematous changes are noted bilaterally. Left lower lobe atelectasis/consolidation may represent pulmonary contusion and/or aspiration in the setting of trauma. Aspirated material is seen in the bilateral mainstem bronchi. Pneumomediastinum is adjacent to the descending thoracic aorta with a small crescentic shaped hypoattenuating area within the anterior aspect of the aorta, this may represent pulsation artifact, however aortic dissection cannot be excluded. A spiculated, partially calcified mass and adjacent nodule in the left upper lobe may represent prior granulomatous disease such as tuberculosis or fungal infection, however malignancy is not excluded. Multiple chronic, healed rib deformities are noted. Lumbar spine: There is straightening of the normal lumbar lordosis with partial sacralization of L5 on the left. Levocurvature of the lumbar spine is noted. Vertebral bodies are normal in height without evidence of acute fracture. Fractures of the left L1, L2 and L3 transverse processes are noted. Left L4 transverse processes appears well corticated, likely chronic. Multilevel degenerative disc disease is noted, most prominent at L4-5 and L5-S1, with sclerotic endplate changes of the inferior endplate of L4 and superior L5, resulting in up to moderate central canal stenosis. Multilevel facet arthropathy is noted resulting in up to severe neural foraminal stenosis at L4-5 bilaterally. A small osseous fragment is noted anterior to the right sacroiliac joint may represent a small fracture. Atherosclerotic calcification of the abdominal aorta is noted. Procedure Note Lisa Rg MD - 02/06/2018 EXAMINATION: 1. Computed tomography (CT) of the head without contrast 2. CT of the cervical spine without contrast 3. CT of the thoracic spine without contrast 4. CT of the lumbar spine without contrast HISTORY: Pain after fall from ladder TECHNIQUE: CT of the head and cervical spine were performed withoutcontrast according to standard protocol. Reformatted axial, sagittal, andcoronal images of the thoracic and lumbar spine were obtained by thetechnologist from a concurrently performed body CT and sent to the workstation for review. FINDINGS: No prior study is available for comparison. Head: No acute intra- or extra-axial fluid collections are identified. Theventricles are of normal size, shape, and morphology. The basilar cisternsare patent. No mass effect or midline shift is seen. The franco-white matterdifferentiation is normal. Other than right maxillary sinus and ethmoid air cell disease, the visualizedportions of the orbits, paranasal sinuses, and mastoids appear normal. Noacute fracture is identified. Cervical spine: There is reversal of the normal cervical lordosis. Vertebral bodies arenormal in height without evidence of acute fracture. The craniocervicaljunction is normal. Multilevel degenerative disc disease is noted, mostprominent at C5-6, resulting in up to severe central canal stenosis at C5-6 and C6-7. Multilevel facet anduncovertebral arthropathy is noted, most prominent at C5-6, resulting inup to severe neuroforaminal stenosis on the left at C4-5 and right atC6-7. A small left apical pneumothorax is noted. Pneumomediastinum is partially visualized. Thoracic spine: The alignment is normal. An acute burst fracture of the T6 vertebral bodywith minimal height loss extends to the left pedicle. There isapproximately 2 mm of retropulsion of the fracture fragment. A subtlelucency in the superior endplate of T3 may represent an anterosuperior fracture. Fractures of the left T3, T5, T6,and T7 transverse processes are noted. Fractures of the left posteriorfourth, fifth, sixth, eighth, and ninth ribs are noted. Mild multileveldegenerative disc disease is noted without central canal stenosis. Multilevel facet arthropathy is noted. Noneural foraminal stenosis is seen. A small left hemopneumothorax is notedwith an apically oriented left chest tube. Emphysematous changes are notedbilaterally. Left lower lobe atelectasis/consolidation may represent pulmonary contusion and/oraspiration in the setting of trauma. Aspirated material is seen in thebilateral mainstem bronchi. Pneumomediastinum is adjacent to thedescending thoracic aorta with a small crescentic shaped hypoattenuating area within the anterior aspect of the aorta, thismay represent pulsation artifact, however aortic dissection cannot beexcluded. A spiculated, partially calcified mass and adjacent nodule inthe left upper lobe may represent prior granulomatous disease such as tuberculosis or fungal infection,however malignancy is not excluded. Multiple chronic, healed ribdeformities are noted. Lumbar spine: There is straightening of the normal lumbar lordosis with partialsacralization of L5 on the left. Levocurvature of the lumbar spine isnoted. Vertebral bodies are normal in height without evidence of acutefracture. Fractures of the left L1, L2 and L3 transverse processes are noted. Left L4 transverse processes appears wellcorticated, likely chronic. Multilevel degenerative disc disease is noted,most prominent at L4-5 and L5-S1, with sclerotic endplate changes of theinferior endplate of L4 and superior L5, resulting in up to moderate central canal stenosis.Multilevel facet arthropathy is noted resulting in up to severe neuralforaminal stenosis at L4-5 bilaterally. A small osseous fragment is notedanterior to the right sacroiliac joint may represent a small fracture. Atherosclerotic calcification of the abdominalaorta is noted. IMPRESSION IMPRESSION: 1. No acute intracranial process. 2. Acute T6 burst fracture with minimal height loss and approximately 2 mmof retropulsion. Fractures of the left T3, T5, T6, and T7 transverseprocesses. 3. Fractures of the left L1, L2, and L3 transverse processes appear acute.Chronic appearing L4 transverse processes. Multilevel degenerative discand joint disease of the lumbar spine as described above. Small osseousfragment anterior to the right sacroiliac joint may represent a small fracture. 4. No evidence of acute fracture in the cervical spine. Multileveldegenerative disc and joint disease of the cervical spine as describedabove. 5. Small left pneumothorax status post left thoracostomy tube placement.Left lower lobe atelectasis/consolidation representing pulmonary contusionand/or aspiration in the setting of trauma. Posterior left fourth, fifth,sixth, eighth, and ninth rib fractures. 6. Spiculated, partially calcified left upper lobe mass and adjacentnodule may represent prior granulomatous disease such as tuberculosis orfungal infection, however malignancy is not excluded. 7. Pneumomediastinum adjacent to the descending thoracic aorta withcrescentic hypoattenuation within the anterior aspect of the aorta. Thismay represent pulsation artifact, however, aortic dissection can not beexcluded. See the dedicated body CT report for further details. Preliminary findings were entered into a note on [facility] By Dr. Lindsey Bryant 03/20/2014 at 8:58 PM. This report was approved by Sumeet Rasheed M.D. on 03/21/2014 8:17 AM. I, Dr. LISA RG M.D. have personally reviewed and interpreted thisexamination/study. This report was electronically signed by LISA RG M.D. on 03/21/20149:52 AM . Frances Velázquez MD CT ORDERABLES * CT CERVICAL SPINE WO CONTRAST (03/20/2014 7:57 PM CDT) Anatomical Region Laterality Modality Spine Other Impressions 03/21/2014 9:52 AM CDT IMPRESSION: 1. No acute intracranial process. 2. Acute T6 burst fracture with minimal height loss and approximately 2 mm of retropulsion. Fractures of the left T3, T5, T6, and T7 transverse processes. 3. Fractures of the left L1, L2, and L3 transverse processes appear acute. Chronic appearing L4 transverse processes. Multilevel degenerative disc and joint disease of the lumbar spine as described above. Small osseous fragment anterior to the right sacroiliac joint may represent a small fracture. 4. No evidence of acute fracture in the cervical spine. Multilevel degenerative disc and joint disease of the cervical spine as described above. 5. Small left pneumothorax status post left thoracostomy tube placement. Left lower lobe atelectasis/consolidation representing pulmonary contusion and/or aspiration in the setting of trauma. Posterior left fourth, fifth, sixth, eighth, and ninth rib fractures. 6. Spiculated, partially calcified left upper lobe mass and adjacent nodule may represent prior granulomatous disease such as tuberculosis or fungal infection, however malignancy is not excluded. 7. Pneumomediastinum adjacent to the descending thoracic aorta with crescentic hypoattenuation within the anterior aspect of the aorta. This may represent pulsation artifact, however, aortic dissection can not be excluded. See the dedicated body CT report for further details. Preliminary findings were entered into a note on [facility] By Dr. Lindsey Reich on 03/20/2014 at 8:58 PM. This report was approved by Sumeet Rasheed M.D. on 03/21/2014 8:17 AM . I, Dr. LSIA RG M.D. have personally reviewed and interpreted this examination/study. This report was electronically signed by LISA RG M.D. on 03/21/2014 9:52 AM . Narrative 03/21/2014 9:52 AM CDT EXAMINATION: 1. Computed tomography (CT) of the head without contrast 2. CT of the cervical spine without contrast 3. CT of the thoracic spine without contrast 4. CT of the lumbar spine without contrast HISTORY: Pain after fall from ladder TECHNIQUE: CT of the head and cervical spine were performed without contrast according to standard protocol. Reformatted axial, sagittal, and coronal images of the thoracic and lumbar spine were obtained by the technologist from a concurrently performed body CT and sent to the workstation for review. FINDINGS: No prior study is available for comparison. Head: No acute intra- or extra-axial fluid collections are identified. The ventricles are of normal size, shape, and morphology. The basilar cisterns are patent. No mass effect or midline shift is seen. The franco-white matter differentiation is normal. Other than right maxillary sinus and ethmoid air cell disease, the visualized portions of the orbits, paranasal sinuses, and mastoids appear normal. No acute fracture is identified. Cervical spine: There is reversal of the normal cervical lordosis. Vertebral bodies are normal in height without evidence of acute fracture. The craniocervical junction is normal. Multilevel degenerative disc disease is noted, most prominent at C5-6, resulting in up to severe central canal stenosis at C5-6 and C6-7. Multilevel facet and uncovertebral arthropathy is noted, most prominent at C5-6, resulting in up to severe neuroforaminal stenosis on the left at C4-5 and right at C6-7. A small left apical pneumothorax is noted. Pneumomediastinum is partially visualized. Thoracic spine: The alignment is normal. An acute burst fracture of the T6 vertebral body with minimal height loss extends to the left pedicle. There is approximately 2 mm of retropulsion of the fracture fragment. A subtle lucency in the superior endplate of T3 may represent an anterosuperior fracture. Fractures of the left T3, T5, T6, and T7 transverse processes are noted. Fractures of the left posterior fourth, fifth, sixth, eighth, and ninth ribs are noted. Mild multilevel degenerative disc disease is noted without central canal stenosis. Multilevel facet arthropathy is noted. No neural foraminal stenosis is seen. A small left hemopneumothorax is noted with an apically oriented left chest tube. Emphysematous changes are noted bilaterally. Left lower lobe atelectasis/consolidation may represent pulmonary contusion and/or aspiration in the setting of trauma. Aspirated material is seen in the bilateral mainstem bronchi. Pneumomediastinum is adjacent to the descending thoracic aorta with a small crescentic shaped hypoattenuating area within the anterior aspect of the aorta, this may represent pulsation artifact, however aortic dissection cannot be excluded. A spiculated, partially calcified mass and adjacent nodule in the left upper lobe may represent prior granulomatous disease such as tuberculosis or fungal infection, however malignancy is not excluded. Multiple chronic, healed rib deformities are noted. Lumbar spine: There is straightening of the normal lumbar lordosis with partial sacralization of L5 on the left. Levocurvature of the lumbar spine is noted. Vertebral bodies are normal in height without evidence of acute fracture. Fractures of the left L1, L2 and L3 transverse processes are noted. Left L4 transverse processes appears well corticated, likely chronic. Multilevel degenerative disc disease is noted, most prominent at L4-5 and L5-S1, with sclerotic endplate changes of the inferior endplate of L4 and superior L5, resulting in up to moderate central canal stenosis. Multilevel facet arthropathy is noted resulting in up to severe neural foraminal stenosis at L4-5 bilaterally. A small osseous fragment is noted anterior to the right sacroiliac joint may represent a small fracture. Atherosclerotic calcification of the abdominal aorta is noted. Procedure Note Lisa Rg MD - 02/06/2018 EXAMINATION: 1. Computed tomography (CT) of the head without contrast 2. CT of the cervical spine without contrast 3. CT of the thoracic spine without contrast 4. CT of the lumbar spine without contrast HISTORY: Pain after fall from ladder TECHNIQUE: CT of the head and cervical spine were performed withoutcontrast according to standard protocol. Reformatted axial, sagittal, andcoronal images of the thoracic and lumbar spine were obtained by thetechnologist from a concurrently performed body CT and sent to the workstation for review. FINDINGS: No prior study is available for comparison. Head: No acute intra- or extra-axial fluid collections are identified. Theventricles are of normal size, shape, and morphology. The basilar cisternsare patent. No mass effect or midline shift is seen. The franco-white matterdifferentiation is normal. Other than right maxillary sinus and ethmoid air cell disease, the visualizedportions of the orbits, paranasal sinuses, and mastoids appear normal. Noacute fracture is identified. Cervical spine: There is reversal of the normal cervical lordosis. Vertebral bodies arenormal in height without evidence of acute fracture. The craniocervicaljunction is normal. Multilevel degenerative disc disease is noted, mostprominent at C5-6, resulting in up to severe central canal stenosis at C5-6 and C6-7. Multilevel facet anduncovertebral arthropathy is noted, most prominent at C5-6, resulting inup to severe neuroforaminal stenosis on the left at C4-5 and right atC6-7. A small left apical pneumothorax is noted. Pneumomediastinum is partially visualized. Thoracic spine: The alignment is normal. An acute burst fracture of the T6 vertebral bodywith minimal height loss extends to the left pedicle. There isapproximately 2 mm of retropulsion of the fracture fragment. A subtlelucency in the superior endplate of T3 may represent an anterosuperior fracture. Fractures of the left T3, T5, T6,and T7 transverse processes are noted. Fractures of the left posteriorfourth, fifth, sixth, eighth, and ninth ribs are noted. Mild multileveldegenerative disc disease is noted without central canal stenosis. Multilevel facet arthropathy is noted. Noneural foraminal stenosis is seen. A small left hemopneumothorax is notedwith an apically oriented left chest tube. Emphysematous changes are notedbilaterally. Left lower lobe atelectasis/consolidation may represent pulmonary contusion and/oraspiration in the setting of trauma. Aspirated material is seen in thebilateral mainstem bronchi. Pneumomediastinum is adjacent to thedescending thoracic aorta with a small crescentic shaped hypoattenuating area within the anterior aspect of the aorta, thismay represent pulsation artifact, however aortic dissection cannot beexcluded. A spiculated, partially calcified mass and adjacent nodule inthe left upper lobe may represent prior granulomatous disease such as tuberculosis or fungal infection,however malignancy is not excluded. Multiple chronic, healed ribdeformities are noted. Lumbar spine: There is straightening of the normal lumbar lordosis with partialsacralization of L5 on the left. Levocurvature of the lumbar spine isnoted. Vertebral bodies are normal in height without evidence of acutefracture. Fractures of the left L1, L2 and L3 transverse processes are noted. Left L4 transverse processes appears wellcorticated, likely chronic. Multilevel degenerative disc disease is noted,most prominent at L4-5 and L5-S1, with sclerotic endplate changes of theinferior endplate of L4 and superior L5, resulting in up to moderate central canal stenosis.Multilevel facet arthropathy is noted resulting in up to severe neuralforaminal stenosis at L4-5 bilaterally. A small osseous fragment is notedanterior to the right sacroiliac joint may represent a small fracture. Atherosclerotic calcification of the abdominalaorta is noted. IMPRESSION IMPRESSION: 1. No acute intracranial process. 2. Acute T6 burst fracture with minimal height loss and approximately 2 mmof retropulsion. Fractures of the left T3, T5, T6, and T7 transverseprocesses. 3. Fractures of the left L1, L2, and L3 transverse processes appear acute.Chronic appearing L4 transverse processes. Multilevel degenerative discand joint disease of the lumbar spine as described above. Small osseousfragment anterior to the right sacroiliac joint may represent a small fracture. 4. No evidence of acute fracture in the cervical spine. Multileveldegenerative disc and joint disease of the cervical spine as describedabove. 5. Small left pneumothorax status post left thoracostomy tube placement.Left lower lobe atelectasis/consolidation representing pulmonary contusionand/or aspiration in the setting of trauma. Posterior left fourth, fifth,sixth, eighth, and ninth rib fractures. 6. Spiculated, partially calcified left upper lobe mass and adjacentnodule may represent prior granulomatous disease such as tuberculosis orfungal infection, however malignancy is not excluded. 7. Pneumomediastinum adjacent to the descending thoracic aorta withcrescentic hypoattenuation within the anterior aspect of the aorta. Thismay represent pulsation artifact, however, aortic dissection can not beexcluded. See the dedicated body CT report for further details. Preliminary findings were entered into a note on [facility] By Dr. Lindsey Bryant 03/20/2014 at 8:58 PM. This report was approved by Sumeet Rasheed M.D. on 03/21/2014 8:17 AM. I, Dr. LISA RG M.D. have personally reviewed and interpreted thisexamination/study. This report was electronically signed by LISA RG M.D. on 03/21/20149:52 AM . Frances Velázquez MD CT ORDERABLES * CT HEAD WO CONTRAST (03/20/2014 7:57 PM CDT) Anatomical Region Laterality Modality Head Other Impressions 03/21/2014 9:52 AM CDT IMPRESSION: 1. No acute intracranial process. 2. Acute T6 burst fracture with minimal height loss and approximately 2 mm of retropulsion. Fractures of the left T3, T5, T6, and T7 transverse processes. 3. Fractures of the left L1, L2, and L3 transverse processes appear acute. Chronic appearing L4 transverse processes. Multilevel degenerative disc and joint disease of the lumbar spine as described above. Small osseous fragment anterior to the right sacroiliac joint may represent a small fracture. 4. No evidence of acute fracture in the cervical spine. Multilevel degenerative disc and joint disease of the cervical spine as described above. 5. Small left pneumothorax status post left thoracostomy tube placement. Left lower lobe atelectasis/consolidation representing pulmonary contusion and/or aspiration in the setting of trauma. Posterior left fourth, fifth, sixth, eighth, and ninth rib fractures. 6. Spiculated, partially calcified left upper lobe mass and adjacent nodule may represent prior granulomatous disease such as tuberculosis or fungal infection, however malignancy is not excluded. 7. Pneumomediastinum adjacent to the descending thoracic aorta with crescentic hypoattenuation within the anterior aspect of the aorta. This may represent pulsation artifact, however, aortic dissection can not be excluded. See the dedicated body CT report for further details. Preliminary findings were entered into a note on [facility] By Dr. Lindsey Reich on 03/20/2014 at 8:58 PM. This report was approved by Sumeet Rasheed M.D. on 03/21/2014 8:17 AM . I, Dr. LISA RG M.D. have personally reviewed and interpreted this examination/study. This report was electronically signed by LISA RG M.D. on 03/21/2014 9:52 AM . Narrative 03/21/2014 9:52 AM CDT EXAMINATION: 1. Computed tomography (CT) of the head without contrast 2. CT of the cervical spine without contrast 3. CT of the thoracic spine without contrast 4. CT of the lumbar spine without contrast HISTORY: Pain after fall from ladder TECHNIQUE: CT of the head and cervical spine were performed without contrast according to standard protocol. Reformatted axial, sagittal, and coronal images of the thoracic and lumbar spine were obtained by the technologist from a concurrently performed body CT and sent to the workstation for review. FINDINGS: No prior study is available for comparison. Head: No acute intra- or extra-axial fluid collections are identified. The ventricles are of normal size, shape, and morphology. The basilar cisterns are patent. No mass effect or midline shift is seen. The franco-white matter differentiation is normal. Other than right maxillary sinus and ethmoid air cell disease, the visualized portions of the orbits, paranasal sinuses, and mastoids appear normal. No acute fracture is identified. Cervical spine: There is reversal of the normal cervical lordosis. Vertebral bodies are normal in height without evidence of acute fracture. The craniocervical junction is normal. Multilevel degenerative disc disease is noted, most prominent at C5-6, resulting in up to severe central canal stenosis at C5-6 and C6-7. Multilevel facet and uncovertebral arthropathy is noted, most prominent at C5-6, resulting in up to severe neuroforaminal stenosis on the left at C4-5 and right at C6-7. A small left apical pneumothorax is noted. Pneumomediastinum is partially visualized. Thoracic spine: The alignment is normal. An acute burst fracture of the T6 vertebral body with minimal height loss extends to the left pedicle. There is approximately 2 mm of retropulsion of the fracture fragment. A subtle lucency in the superior endplate of T3 may represent an anterosuperior fracture. Fractures of the left T3, T5, T6, and T7 transverse processes are noted. Fractures of the left posterior fourth, fifth, sixth, eighth, and ninth ribs are noted. Mild multilevel degenerative disc disease is noted without central canal stenosis. Multilevel facet arthropathy is noted. No neural foraminal stenosis is seen. A small left hemopneumothorax is noted with an apically oriented left chest tube. Emphysematous changes are noted bilaterally. Left lower lobe atelectasis/consolidation may represent pulmonary contusion and/or aspiration in the setting of trauma. Aspirated material is seen in the bilateral mainstem bronchi. Pneumomediastinum is adjacent to the descending thoracic aorta with a small crescentic shaped hypoattenuating area within the anterior aspect of the aorta, this may represent pulsation artifact, however aortic dissection cannot be excluded. A spiculated, partially calcified mass and adjacent nodule in the left upper lobe may represent prior granulomatous disease such as tuberculosis or fungal infection, however malignancy is not excluded. Multiple chronic, healed rib deformities are noted. Lumbar spine: There is straightening of the normal lumbar lordosis with partial sacralization of L5 on the left. Levocurvature of the lumbar spine is noted. Vertebral bodies are normal in height without evidence of acute fracture. Fractures of the left L1, L2 and L3 transverse processes are noted. Left L4 transverse processes appears well corticated, likely chronic. Multilevel degenerative disc disease is noted, most prominent at L4-5 and L5-S1, with sclerotic endplate changes of the inferior endplate of L4 and superior L5, resulting in up to moderate central canal stenosis. Multilevel facet arthropathy is noted resulting in up to severe neural foraminal stenosis at L4-5 bilaterally. A small osseous fragment is noted anterior to the right sacroiliac joint may represent a small fracture. Atherosclerotic calcification of the abdominal aorta is noted. Procedure Note Lisa Rg MD - 02/06/2018 EXAMINATION: 1. Computed tomography (CT) of the head without contrast 2. CT of the cervical spine without contrast 3. CT of the thoracic spine without contrast 4. CT of the lumbar spine without contrast HISTORY: Pain after fall from ladder TECHNIQUE: CT of the head and cervical spine were performed withoutcontrast according to standard protocol. Reformatted axial, sagittal, andcoronal images of the thoracic and lumbar spine were obtained by thetechnologist from a concurrently performed body CT and sent to the workstation for review. FINDINGS: No prior study is available for comparison. Head: No acute intra- or extra-axial fluid collections are identified. Theventricles are of normal size, shape, and morphology. The basilar cisternsare patent. No mass effect or midline shift is seen. The franco-white matterdifferentiation is normal. Other than right maxillary sinus and ethmoid air cell disease, the visualizedportions of the orbits, paranasal sinuses, and mastoids appear normal. Noacute fracture is identified. Cervical spine: There is reversal of the normal cervical lordosis. Vertebral bodies arenormal in height without evidence of acute fracture. The craniocervicaljunction is normal. Multilevel degenerative disc disease is noted, mostprominent at C5-6, resulting in up to severe central canal stenosis at C5-6 and C6-7. Multilevel facet anduncovertebral arthropathy is noted, most prominent at C5-6, resulting inup to severe neuroforaminal stenosis on the left at C4-5 and right atC6-7. A small left apical pneumothorax is noted. Pneumomediastinum is partially visualized. Thoracic spine: The alignment is normal. An acute burst fracture of the T6 vertebral bodywith minimal height loss extends to the left pedicle. There isapproximately 2 mm of retropulsion of the fracture fragment. A subtlelucency in the superior endplate of T3 may represent an anterosuperior fracture. Fractures of the left T3, T5, T6,and T7 transverse processes are noted. Fractures of the left posteriorfourth, fifth, sixth, eighth, and ninth ribs are noted. Mild multileveldegenerative disc disease is noted without central canal stenosis. Multilevel facet arthropathy is noted. Noneural foraminal stenosis is seen. A small left hemopneumothorax is notedwith an apically oriented left chest tube. Emphysematous changes are notedbilaterally. Left lower lobe atelectasis/consolidation may represent pulmonary contusion and/oraspiration in the setting of trauma. Aspirated material is seen in thebilateral mainstem bronchi. Pneumomediastinum is adjacent to thedescending thoracic aorta with a small crescentic shaped hypoattenuating area within the anterior aspect of the aorta, thismay represent pulsation artifact, however aortic dissection cannot beexcluded. A spiculated, partially calcified mass and adjacent nodule inthe left upper lobe may represent prior granulomatous disease such as tuberculosis or fungal infection,however malignancy is not excluded. Multiple chronic, healed ribdeformities are noted. Lumbar spine: There is straightening of the normal lumbar lordosis with partialsacralization of L5 on the left. Levocurvature of the lumbar spine isnoted. Vertebral bodies are normal in height without evidence of acutefracture. Fractures of the left L1, L2 and L3 transverse processes are noted. Left L4 transverse processes appears wellcorticated, likely chronic. Multilevel degenerative disc disease is noted,most prominent at L4-5 and L5-S1, with sclerotic endplate changes of theinferior endplate of L4 and superior L5, resulting in up to moderate central canal stenosis.Multilevel facet arthropathy is noted resulting in up to severe neuralforaminal stenosis at L4-5 bilaterally. A small osseous fragment is notedanterior to the right sacroiliac joint may represent a small fracture. Atherosclerotic calcification of the abdominalaorta is noted. IMPRESSION IMPRESSION: 1. No acute intracranial process. 2. Acute T6 burst fracture with minimal height loss and approximately 2 mmof retropulsion. Fractures of the left T3, T5, T6, and T7 transverseprocesses. 3. Fractures of the left L1, L2, and L3 transverse processes appear acute.Chronic appearing L4 transverse processes. Multilevel degenerative discand joint disease of the lumbar spine as described above. Small osseousfragment anterior to the right sacroiliac joint may represent a small fracture. 4. No evidence of acute fracture in the cervical spine. Multileveldegenerative disc and joint disease of the cervical spine as describedabove. 5. Small left pneumothorax status post left thoracostomy tube placement.Left lower lobe atelectasis/consolidation representing pulmonary contusionand/or aspiration in the setting of trauma. Posterior left fourth, fifth,sixth, eighth, and ninth rib fractures. 6. Spiculated, partially calcified left upper lobe mass and adjacentnodule may represent prior granulomatous disease such as tuberculosis orfungal infection, however malignancy is not excluded. 7. Pneumomediastinum adjacent to the descending thoracic aorta withcrescentic hypoattenuation within the anterior aspect of the aorta. Thismay represent pulsation artifact, however, aortic dissection can not beexcluded. See the dedicated body CT report for further details. Preliminary findings were entered into a note on [facility] By Dr. Lindsey Bryant 03/20/2014 at 8:58 PM. This report was approved by Sumete Rasheed M.D. on 03/21/2014 8:17 AM. I, Dr. LISA RG M.D. have personally reviewed and interpreted thisexamination/study. This report was electronically signed by LISA RG M.D. on 03/21/20149:52 AM . Frances Velázquez MD CT ORDERABLES * (ABNORMAL) BLOOD GASES ESHA (03/20/2014 7:14 PM CDT) pH Mixed Venous 7.28(L) 7.30 - 7.40 [facility] pCO2 Mixed Venous 57(H) 40 - 46 mmHg [facility] pO2 Mixed Venous 26(L) 35 - 42 mmHg [facility] HCO3 Mixed Venous 26.1(H) 22.0 - 26.0 mmol/L [facility] TCO2 Mixed Venous 27.8 25.0 - 29.0 mmol/L [facility] Base Excess Venous -1.0 -2.0 - 2.0 mmol/L [facility] Hemoglobin Mixed Venous 12.6(L) 13.5 - 17.5 g/dL [facility] Oxyhemoglobin Mixed Venous 36.6(L) 66.0 - 77.0 % [facility] Carboxyhemoglobin Venous 4.8(H) 0.0 - 3.0 % [facility] Methemoglobin 1.8 0.0 - 2.0 % [facility] FI O2 Mixed Venous 21.0 % [facility] Blood specimen (specimen) BLOOD SPECIMEN / Unknown 03/20/2014 7:14 PM CDT 03/20/2014 7:30 PM CDT Narrative [facility] - 03/20/2014 7:33 PM CDT FIO2->21 Frances Velázquez MD LAB - BLOOD GASES OR DERABLES Performing Organization Address City/State/[facility] Co de Phone Number [facility] [address] [phone] * (ABNORMAL) COMPREHENSIVE METABOLIC PANEL (03/20/2014 7:04 PM CDT) BUN 22 7 - 26 mg/dL [facility] Anion Gap 13 8 - 18 [facility] BUN/Creatinine Ratio 24(H) 7 - 23 [facility] Osmolality Calculated 277 270 - 300 mOsm/kg [facility] Albumin/Globulin Ratio 0.9(L) 1.1 - 2.3 [facility] Creatinine 0.9 0.6 - 1.2 mg/dL [facility] Sodium 139 136 - 145 mmol/L [facility] Potassium 4.3 3.5 - 4.5 mmol/L [facility] Chloride 104 98 - 107 mmol/L [facility] CO2 26 22 - 29 mmol/L [facility] Glucose 106 70 - 115 mg/dL [facility] Calcium 9.0 8.4 - 10.2 mg/dL [facility] Protein Total 7.3 6.0 - 8.3 g/dL [facility] Albumin 3.4 3.4 - 5.0 g/dL [facility] Bilirubin Total 0.4 0.2 - 1.2 mg/dL [facility] Alkaline Phosphatase 75 40 - 150 Units/L [facility] ALT 79(H) 0 - 55 Units/L [facility] AST 210(H) 5 - 34 Units/L [facility] eGFR >60 >60 mL/min/1.7 3 m2 [facility] Blood specimen (specimen) BLOOD SPECIMEN / Unknown 03/20/2014 7:04 PM CDT 03/20/2014 7:31 PM CDT Frances Velázquez MD LAB - CHEMISTRY RUDOLPH VELOZ Performing Organization Address City/[facility]/ZIP Co de Phone Number [address] [phone] * ALCOHOL ETHYL BLOOD (03/20/2014 7:04 PM CDT) Interpretation Ethanol None Detected None Detected mg/dL [facility] Comment:Ethanol levels less than 10 mg/dL are resulted as None detected . Blood specimen (specimen) BLOOD SPECIMEN / Unknown 03/20/2014 7:04 PM CDT 03/20/2014 7:31 PM CDT Frances Velázquez MD LAB - CHEMISTRY RUDOLPH VELOZ Performing Organization Address [facility] Co de Phone Number [address] [phone] * XR PELVIS 1 OR 2VW (03/20/2014 6:58 PM CDT) Anatomical Region Laterality Modality Pelvis Other Impressions 03/21/2014 5:32 PM CDT Impression: No acute fracture or dislocation. This report has been dictated by Susan Torres MD. (Public Relations Consultant). This report was approved by Susan Torres M.D. on 03/21/2014 10:51 AM . I, Dr. ESTEPHANIA COSTELLO M.D. have personally reviewed and interpreted this examination/study. This report was electronically signed by ESTEPHANIA COSTELLO M.D. on 03/21/2014 5:32 PM . Narrative 03/21/2014 5:32 PM CDT Exam: PX PELVIS 1 OR 2 VW Date: 03/20/2014; 6:58 PM History: trauma Comparison: No prior study is available for comparison. Findings: The alignment is normal. There is no acute fracture or dislocation. A chronic right femoral neck fracture is seen status post open reduction and internal fixation. The right hip joint demonstrates degenerative changes. The femoral heads are well- seated in their respective acetabula. The bilateral sacroiliac joints and pubic symphysis are intact. Degenerative disc disease is seen involving the lower lumbar spine. Procedure Note Estephania Costello MD - 02/06/2018 Exam: PX PELVIS 1 OR 2 VW Date: 03/20/2014; 6:58 PM History: trauma Comparison: No prior study is available for comparison. Findings: The alignment is normal. There is no acute fracture or dislocation. Achronic right femoral neck fracture is seen status post open reduction andinternal fixation. The right hip joint demonstrates degenerative changes.The femoral heads are well- seated in their respective acetabula. The bilateral sacroiliac joints and pubicsymphysis are intact. Degenerative disc disease is seen involving the lower lumbar spine. IMPRESSION Impression: No acute fracture or dislocation. This report has been dictated by Susan Torres MD. (RadiologyResident). This report was approved by Susan Torres M.D. on 03/21/2014 10:51 AM. I, Dr. ESTEPHANIA COSTELLO M.D. have personally reviewed and interpreted thisexamination/study. This report was electronically signed by ESTEPHANIA COSTELLO M.D. on 03/21/20145:32 PM . Frances Velázquez MD DIAGNOSTIC IMAGING O RDERABLES * TYPE + SCREEN PANEL (03/20/2014 6:36 PM CDT) Interpretation ABO/Rh Patient AB POS [facility] Antibody Screen NEGATIVE [facility] Blood specimen (specimen) BLOOD SPECIMEN / Unknown 03/20/2014 6:36 PM CDT 03/20/2014 7:34 PM CDT Frances Velázquez MD LAB - [place]LOOD [place] [address], [facility] [phone]
--- OUTSIDE RECORDS SUMMARY | 2025-01-18 09:45 | XMS_ITS | Patient Health Summary ---
Author Organization [facility] [place] Address [address] [place] [address] Care Team Providers Care Adjunct Instructor Of Women'S Studies Name Role Phone Unavailable Primary Care Provider Unavailabl e Note from [facility],non-owned Affiliates and Associated Physician Practices is amultiple site organization consisting of ambulatory clinics and hospital sitesin [place], [place]. This disclosure is being madepursuant to the Care Everywhere program and may not contain all information available regarding this patient. Last updated 18.[facility] [place] Medications * Be aware that medications may [...] DATE/TIME OF EXAM: 08/21/2022 11:12 AM, LOCATION [facility] INDICATION: M54.9: Back pain, unspecified back [...] 3VW, DATE/TIME OF EXAM: 1:12 AM, LOCATION [facility] INDICATION: M54.9: Back pain, unspecified back [...] CT. Report dictated by Kira Hadley M.D. (radiology equipment servicer). This report was approved by Kira Hadley [...] The superior endplate fracture of T3 and R7oaxia fracture are better visualized on CT. 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 IMPRESSION Impression: 1. The superior endplate fracture of T3 and T6 burst fracture are bettervisualized on CT. Report dictated by Kira Hadley M.D. (radiology equipment servicer). This report was approved by Kira Hadley [...] unchanged. Report dictated by Aaron Reich M.D. (radiology equipment servicer). Dr. KENNY Pleitez MD have personally reviewed [...] unchanged. Report dictated by Aaron Reich M.D. (radiology equipment servicer). Dr. KENNY Pleitez MD have personally reviewed and interpreted thisexamination/study. This report was electronically signed by KNENY DSOUZA MD on 04/01/20147:33 PM . David Martini MD DIAGNOSTIC IMAGING O RDERABLES * (ABNORMAL) CBC W AUTO DIFFERENTIAL (03/30/2014 3:22 AM CDT) Only the most recent of16 resultswithin the time period is included. WBC 10.4 3.5 - 10.5 10 3/uL [facility] RBC 3.43(L) 4.30 - 5.70 10 6/uL [facility] Hemoglobin 11.2(L) 13.5 - 17.5 g/dL [facility] Hematocrit 32.9(L) 39.0 - 50.0 % [facility] MCV 95.9 81.0 - 97.0 fL [facility] MCH 32.7 28.0 - 34.0 pg [facility] MCHC 34.0 32.0 - 36.0 g/dL [facility] Platelet Count 494(H) 150 - 400 10 3/uL [facility] RDW-SD 46.0 36.0 - 50.0 fL [facility] RDW-CV 13.2 11.2 - 14.8 % [facility] MPV 8.8(L) 9.3 - 12.8 fL [facility] nRBC Absolute 0.00 0 10 3/uL [facility] nRBC Auto 0.0 0 /100 WBC [facility] RET-HE 33 pg [facility] Neutrophils % 69.3 35.0 - 70.0 % [facility] Lymphocytes % 7.3(L) 19.7 - 55.1 % [facility] Monocytes % 15.9(H) 3.0 - 15.0 % [facility] Eosinophils % 6.5(H) 0.0 - 6.0 % [facility] Basophil % 1.0 0.0 - 1.5 % [facility] Neutrophils Absolute 7.2(H) 1.6 - 7.0 10 3/uL [facility] Lymphocyte Absolute 0.8 0.8 - 2.9 10 3/uL [facility] Monocytes Absolute 1.66(H) 0.14 - 0.66 10 3/uL [facility] Eosinophils Absolute 0.68(H) 0.00 - 0.22 10 3/uL [facility] Basophils Absolute 0.10(H) 0.00 - 0.06 10 3/uL [facility] Blood specimen (specimen) BLOOD SPECIMEN / Unknown 03/30/2014 3:22 AM CDT 03/30/2014 3:53 AM CDT David Martini MD LAB - HEMATOLOGY ORD ERABLES Performing Organization Address [facility]/State/ZIP Co de Phone Number [address] [phone] * (ABNORMAL) DIFFERENTIAL MANUAL (03/29/2014 2:43 AM CDT) Only the most recent of6 resultswithin the time period is included. WBC (corrected for NRBC) 9.6 10 3/uL [facility] Total Cell Count 100 [facility] Neutrophils Absolute Manual 7.97(H) 1.60 - 7.00 10 3/uL [facility] Comment:(BANDS+SEGS) x WBC = NEUT # (ANC) Lymphocyte Absolute Manual 0.67(L) 0.80 - 2.90 10 3/uL [facility] Monocytes Absolute Manual 0.48 0.14 - 0.66 10 3/uL [facility] Eosinophils Absolute Manual 0.29(H) 0.00 - 0.22 10 3/uL [facility] Neutrophil % Manual 83(H) 30 - 60 % [facility] Lymphocyte % Manual 7(L) 20 - 45 % [facility] Monocytes % Manual 5 2 - 10 % [facility] Eosinophils % Manual 3 1 - 6 % [facility] Atypical Lymphocyte % Manual 2(H) 0 % [facility] Platelet Estimate Slightly Increased(A) Adequate [facility] RBC Morphology Normal [facility] Blood specimen (specimen) BLOOD SPECIMEN / Unknown 03/29/2014 2:43 AM CDT 03/29/2014 3:45 AM CDT David Martini MD LAB - HEMATOLOGY ORD SIMONE [facility] [address] [phone] * VAS BILATERAL VENOUS DUPLEX LE (03/28/2014 9:41 AM CDT) Anatomical Region Laterality Modality Other David Martini MD VASCULAR LAB ORDERAB LES * BASIC METABOLIC PANEL (CALCIUM TOTAL) (03/28/2014 2:27 AM CDT) Only the most recent of8 resultswithin the time period is included. BUN 18 7 - 26 mg/dL [facility] Anion Gap 15 8 - 18 [facility] BUN/Creatinine Ratio 23 7 - 23 [facility] Osmolality Calculated 272 270 - 300 mOsm/kg [facility] Creatinine 0.8 0.6 - 1.2 mg/dL [facility] Sodium 137 136 - 145 mmol/L [facility] Potassium 4.3 3.5 - 4.5 mmol/L [facility] Chloride 98 98 - 107 mmol/L [facility] CO2 28 22 - 29 mmol/L [facility] Glucose 107 70 - 115 mg/dL [facility] Calcium 9.3 8.4 - 10.2 mg/dL [facility] eGFR >60 >60 mL/min/1.7 3 m2 [facility] Blood specimen (specimen) BLOOD SPECIMEN / Unknown 03/28/2014 2:27 AM CDT 03/28/2014 3:12 AM CDT David Martini MD LAB - CHEMISTRY RUDOLPH VELOZ [facility] Organization Address City/State/ZIP Co de Phone Number [facility] [address] [phone] * PHOSPHORUS BLOOD (03/28/2014 2:27 AM CDT) Only the most recent of6 resultswithin the time period is included. Phosphorus 3.5 2.3 - 4.7 mg/dL [facility] Blood specimen (specimen) BLOOD SPECIMEN / Unknown 03/28/2014 2:27 AM CDT 03/28/2014 3:12 AM CDT David Martini MD LAB - CHEMISTRY RUDOLPH VELOZ Performing Organization Address [facility]/ZIP Co de Phone Number [address] [phone] * MAGNESIUM BLOOD (03/28/2014 2:27 AM CDT) Only the most recent of6 resultswithin the time period is included. Magnesium 2.2 1.6 - 2.6 mg/dL [facility] Blood specimen (specimen) BLOOD SPECIMEN / Unknown 03/28/2014 2:27 AM CDT 03/28/2014 3:12 AM CDT David Martini MD LAB - CHEMISTRY RUDOLPH VELOZ Performing Organization Address [facility] Co de Phone Number [address] [phone] * PTT [facility] (03/27/2014 3:30 AM CDT) Only the most recent of2 resultswithin the time period is included. APTT 32.5 23.0 - 38.4 Seconds [facility] Comment:Suggested therapeuti c range for full dose I.V. heparin therapy for venous thromboembolism is 66.0-91.0 seconds. Blood specimen (specimen) BLOOD SPECIMEN / Unknown 03/27/2014 3:30 AM CDT 03/27/2014 4:03 AM CDT Narrative [facility] - 03/27/2014 4:33 AM CDT Is patient on Heparin, Argatroban or Dabigatran?->N David Martini MD LAB - COAGULATION OR DERABLES Performing Organization Address [facility] Co de Phone Number [address] [phone] * (ABNORMAL) PT-INR [facility] (03/27/2014 3:30 AM CDT) Only the most recent of2 resultswithin the time period is included. PT 12.0(L) 12.1 - 14.8 Seconds [facility] INR 0.9 See Comment [facility] Comment: Suggested therapeutic range for low-intensity coumadin therapy for venous thromboembolism prophylaxis is an INR of 2.0-3.0. For high risk patients (Mitral Valve Prosthesis, Atrial Fibrillation, history of TIA/stroke), suggested prophylactic therapeutic range is an INR of 2.5-3.5. Blood specimen (specimen) BLOOD SPECIMEN / Unknown 03/27/2014 3:30 AM CDT 03/27/2014 4:03 AM CDT Narrative [facility] - 03/27/2014 4:33 AM CDT Is patient on Heparin, Argatroban or Dabigatran?->N David Martini MD LAB - COAGULATION OR DERABLES [address] [phone] * (ABNORMAL) PREALBUMIN (03/27/2014 3:30 AM CDT) Prealbumin 12(L) 16 - 45 mg/dL [facility] Blood specimen (specimen) BLOOD SPECIMEN / Unknown 03/27/2014 3:30 AM CDT 03/27/2014 4:03 AM CDT David Martini MD LAB - CHEMISTRY ORDE RABLES Performing Organization Address City/[facility]/ZIP Co de Phone Number [address] [phone] * (ABNORMAL) CULTURE AEROBIC + GRAM STAIN (03/25/2014 12:24 PM CDT) Culture Aerobic COAG NEG STAPH SPECIES(A) [facility] Comment: Growth at 48 Hours Coagulase Neg Staph Species Results called to and read back by Xochitl AT 09:15 AM, 03/27/2014. Results called to and read back by AT 9:30 AM, 03/27/2014. Tissue specimen from lung (specimen) (Chest Tube) 03/25/2014 12:24 PM CDT 03/25/2014 12:43 PM CDT Narrative [facility] - 03/29/2014 11:32 AM CDT [...] Address [facility] Co de Phone Number [facility] [address] [phone] * CULTURE AEROBIC (03/25/2014 12:24 PM CDT) Tissue specimen from lung (specimen) 03/25/2014 12:24 PM CDT [facility] - 03/29/2014 11:32 AM CDT From left chest tube Specimen Type->Lung The following orders were created for panel order CULTURE, AEROBIC & GRAM STAIN. Procedure Abnormality Status --------- ------ CULTURE, AEROBIC (ROUTINE)[[id number]] Abnormal Final result Gram Stain[[id number]] Please view results for these tests on the individual orders. David Martini MD LAB - MICROBIOLOGY O MARY Performing Organization Address [facility] Co de Phone Number [facility] [address] * (ABNORMAL) CBC W/O DIFFERENTIAL (03/25/2014 8:53 AM CDT) Only the most recent of2 resultswithin the time period is included. WBC 6.9 3.5 - 10.5 10 3/uL [facility] RBC 3.40(L) 4.30 - 5.70 10 6/uL [facility] Hemoglobin 11.3(L) 13.5 - 17.5 g/dL [facility] Hematocrit 33.0(L) 39.0 - 50.0 % [facility] MCV 97.1(H) 81.0 - 97.0 fL [facility] MCH 33.2 28.0 - 34.0 pg [facility] MCHC 34.2 32.0 - 36.0 g/dL [facility] Platelet Count 238 150 - 400 10 3/uL [facility] RDW-SD 47.2 36.0 - 50.0 fL [facility] RDW-CV 13.3 11.2 - 14.8 % [facility] MPV 9.4 9.3 - 12.8 fL [facility] nRBC Absolute 0.00 0 10 3/uL [facility] nRBC Auto 0.0 0 /100 WBC [facility] Blood specimen (specimen) BLOOD SPECIMEN / Unknown 03/25/2014 8:53 AM CDT 03/25/2014 9:19 AM CDT David Martini MD LAB - HEMATOLOGY ORD ERABLES [facility] [address] [place] [address] * (ABNORMAL) CULTURE RESPIRATORY LOWER (03/25/2014 12:02 AM CDT) Only the most recent of2 resultswithin the time period is included. Culture Sputum KLEBSIELLA PNEUMONIAE(A) [facility] Comment:Heavy Growth Klebsie lla Pneumoniae 03/25/2014 12:0 2 AM CDT 03/25/2014 12:09 AM CDT Narrative [facility] - 03/28/2014 4:06 PM CDT [...] Address [facility] Co de Phone Number [facility] [address] [phone] * CULTURE SPUTUM+GRAM STAIN (03/25/2014 12:02 AM CDT) Only the most recent of2 resultswithin the time period is included. Sputum specimen (specimen) SPUTUM / Unknown 03/25/2014 12:02 AM CDT [facility] - 03/28/2014 4:06 PM CDT Specimen Type->Sputum The following orders were created for panel order Culture, Sputum and Smear. Procedure Abnormality Status --------- ------ Sputum culture[[id number]] Abnormal Final result Gram Stain[[id number]] Final result Please view results for these tests on the individual orders. David Martini MD LAB - MICROBIOLOGY O MARY Performing Organization Address [facility] Co de Phone Number [facility] [address] * GRAM STAIN SMEAR (03/25/2014 12:02 AM CDT) Only the most recent of2 resultswithin the time period is included. Gram Stain Many Polymorphonuclear Cells [facility] Gram Stain Many Gram Negative bacilli [facility] Gram Stain Many Gram Positive cocci in pairs, chains, and clusters [facility] Gram Stain Few Gram Positive bacilli [facility] 03/25/2014 12:0 2 AM CDT 03/25/2014 12:09 AM CDT Narrative [facility] - 03/25/2014 11:48 AM CDT Gram Stains are routinely screened for the presence of Polymorphonuclear Cells. David Martini MD LAB - MICROBIOLOGY O MARY Performing Organization Address [facility]/ZIP Co de Phone Number [address] [phone] * CULTURE URINE (03/24/2014 4:47 AM CDT) Culture Urine No Growth of >=100 CFU/ml after 48 Hours [facility] Urine specimen (specimen) URINE SPECIMEN OBTAINED BY CLEAN CATCH PROCEDURE / Unknown 03/24/2014 4:47 AM CDT 03/24/2014 5:39 AM CDT Narrative [facility] - 03/26/2014 2:47 PM CDT Specimen Type->Urine David Martini MD LAB - MICROBIOLOGY O MARY Performing Organization Address [facility] Co de Phone Number [address] [phone] * (ABNORMAL) URINALYSIS REFLEX TO MICROSCOPIC NO CULTURE (03/24/2014 4:46 AM CDT) Only the most recent of2 resultswithin the time period is included. Color UA Yellow Straw, Yellow, Colorless, Light Yellow [facility] Clarity UA Clear Clear [facility] Specific [place] UA 1.007 1.001 - 1.030 [facility] pH UA 7.0 5.0 - 8.0 [facility] Protein UA Negative <=20 mg/dL [facility] Glucose UA Negative Negative mg/dL [facility] Ketone UA Trace(A) Negative mg/dL [facility] Bilirubin UA Negative Negative mg/dL [facility] Blood UA Negative Negative [facility] Nitrite UA Negative Negative [facility] Leukocyte Esterase Negative Negative [facility] Urobilinogen UA <2.0 <2.0 mg/dL [facility] RBC UA 2 0 - 8 /HPF [facility] Urine specimen (specimen) 03/24/2014 4:46 AM CDT 03/24/2014 5:39 AM CDT David Martini MD LAB - URINALYSIS ORD ERABLES Performing Organization Address City/[facility] Co de Phone Number [address] [phone] * HISTOPLASMA GALACTOMANNAN AG URINE (03/24/2014 4:46 AM CDT) Urine specimen (specimen) 03/24/2014 4:46 AM CDT 03/24/2014 5:39 AM CDT David Martini MD LAB - URINE CHEMISTR Y ORDERABLES Performing Organization Address [facility] Co de Phone Number [place] [phone] [address] * CULTURE BLOOD (03/24/2014 3:53 AM CDT) Only the most recent of2 resultswithin the time period is included. Culture Blood No Growth at 5 days [facility] Blood specimen (specimen) BLOOD SPECIMEN / Unknown 03/24/2014 3:53 AM CDT 03/24/2014 4:31 AM CDT Narrative [facility] - 03/29/2014 4:45 AM CDT Draw 15 minutes after Culture 1 from a different site Specimen Type->Blood David Martini MD LAB - MICROBIOLOGY O RDERABLES Performing Organization Address [facility] de Phone Number [address] [phone] * CT CHEST WO CONTRAST (03/23/2014 1:31 [...] are again seen: T6 vertebral body, left [id number] ribs, left T3 transverse process, left T5-T7 [...] thisexamination/study. This report was electronically signed by MAYLEIN CROWDER M.D. on03/23/2014 5:24 PM . David [...] consistent with trauma. The compression fracture at [id number] FDG uptake (SUV Max 3.1). In addition, the transverse processfractures previously identified on the left side of T3, T5-T7, and L1-[id number] moderate to intense FDG uptake which is [...] * GLUCOSE - POINT OF CARE (AMB) [facility] (03/23/2014 11:12 AM CDT) Only the most recent of2 resultswithin the time period is included. Pathologist [facility] Glucose POCT 104 mg/dL [facility] Capillary blood specimen (specimen) 03/23/2014 11:12 AM CDT Tran Acevedo MD LAB - POINT OF CARE ORDERABLES Performing Organization Address [facility] Co de Phone Number [facility] * HISTOPLASMA ANTIGEN BLOOD (03/22/2014 11:18 AM CDT) Blood specimen (specimen) BLOOD SPECIMEN / Unknown 03/22/2014 11:18 AM CDT 03/22/2014 11:18 AM CDT David Martini MD LAB - CHEMISTRY ORDE [facility] Performing Organization Address [facility]/ZIP Co de Phone Number [place] [phone] [address] * (ABNORMAL) HEPATIC FUNCTION PANEL (03/22/2014 2:50 AM CDT) Pathologist [facility] Bilirubin Conjugated 0.6(H) 0.0 - 0.5 mg/dL [facility] Bilirubin Unconjugated 0.6 Unconjugated Bilirubin is a calculated value: Reference ranges have not been established. mg/dL [facility] Albumin/Globulin Ratio 0.8(L) 1.1 - 2.3 [facility] Protein Total 6.9 6.0 - 8.3 g/dL [facility] Albumin 3.0(L) 3.4 - 5.0 g/dL [facility] Bilirubin Total 1.2 0.2 - 1.2 mg/dL [facility] Alkaline Phosphatase 62 40 - 150 Units/L [facility] ALT 50 0 - 55 Units/L [facility] AST 61(H) 5 - 34 Units/L [facility] Blood specimen (specimen) BLOOD SPECIMEN / Unknown 03/22/2014 2:50 AM CDT 03/22/2014 3:09 AM CDT David Martini MD LAB - CHEMISTRY RUDOLPH VELOZ Performing Organization Address City/[facility]/ZIP Co de Phone Number [address] [phone] * LIPASE BLOOD (03/22/2014 2:50 AM CDT) Only the most recent of2 resultswithin the time period is included. Lipase 16 8 - 78 Units/L [facility] Blood specimen (specimen) BLOOD SPECIMEN / Unknown 03/22/2014 2:50 AM CDT 03/22/2014 3:09 AM CDT David Martini MD LAB - CHEMISTRY RUDOLPH VELOZ Performing Organization Address [facility]/ZIP Co de Phone Number [address] [phone] * (ABNORMAL) DRUG ABUSE PANEL 10-20+ETHANOL URINE NO CONFIRM (03/21/2014 5:49 AM CDT) Pathologist [facility] Amphetamines Screen Urine Negative Negative : < 1000 ng/mL [facility] Barbiturates Screen Urine Negative Negative : < 200 ng/mL [facility] Benzodiazepine Screen Urine Negative Negative : < 200 ng/mL [facility] Opiates Urine Positive(A) Negative : < 300 ng/mL [facility] Comment: Positive urine opiate screening results should be confirmed by another generally accepted non-immunological method such as gas chromatography or mass spectrometry. Cocaine Metabolites Urine Negative Negative : < 300 ng/mL [facility] Phencyclidine Screen Urine Negative Negative : < 25 ng/ml [facility] Cannabinoids Screen Urine Negative Negative : <50 ng/mL [facility] Methadone Screen Urine Negative Negative : < 300 ng/mL [facility] Urine specimen (specimen) 03/21/2014 5:49 AM CDT 03/21/2014 5:56 AM CDT Narrative [facility] - 03/21/2014 6:15 AM CDT The Urine Toxicology Screening Panel does not screen for Propoxyphene, Meprobamate, Carisoprodol, Trazodone, [id number]-bhp-yxrsvaf medications and/or volatiles (Acetone, Isopropanol, Methanol or Ethylene Glycol). Ethanol, Salicylate, Acetaminophen, Tricyclic Antidepressants and several therapeutic drugs may be individually assayed in serum or plasma specimen. Toxicology testing by the [facility] is an aid to medical diagnosis and treatment of patients. No documented chain of custody was maintained. Results are intended to be used for clinical purposes only. David Martini MD LAB - URINE CHEMISTR Y ORDERABLES [address] [phone] * CT CHEST ABDOMEN PELVIS W CONT [...] rib fractures, transverse process fractures, and a [id number] fracture. 6. No evidence of acute visceral [...] pH Mixed Venous 7.28(L) 7.30 - 7.40 [facility] pCO2 Mixed Venous 57(H) 40 - 46 mmHg [facility] pO2 Mixed Venous 26(L) 35 - 42 mmHg [facility] HCO3 Mixed Venous 26.1(H) 22.0 - 26.0 mmol/L [facility] TCO2 Mixed Venous 27.8 25.0 - 29.0 mmol/L [facility] Base Excess Venous -1.0 -2.0 - 2.0 mmol/L [facility] Hemoglobin Mixed Venous 12.6(L) 13.5 - 17.5 g/dL [facility] Oxyhemoglobin Mixed Venous 36.6(L) 66.0 - 77.0 % [facility] Carboxyhemoglobin Venous 4.8(H) 0.0 - 3.0 % [facility] Methemoglobin 1.8 0.0 - 2.0 % [facility] FI O2 Mixed Venous 21.0 % [facility] Blood specimen (specimen) BLOOD SPECIMEN / Unknown 03/20/2014 7:14 PM CDT 03/20/2014 7:30 PM CDT Narrative [facility] - 03/20/2014 7:33 PM CDT FIO2->21 Frances Velázquez MD LAB - BLOOD GASES OR DERABLES Performing Organization Address City/State/[facility] Co de Phone Number [facility] [address] [phone] * (ABNORMAL) COMPREHENSIVE METABOLIC PANEL (03/20/2014 7:04 PM CDT) BUN 22 7 - 26 mg/dL [facility] Anion Gap 13 8 - 18 [facility] BUN/Creatinine Ratio 24(H) 7 - 23 [facility] Osmolality Calculated 277 270 - 300 mOsm/kg [facility] Albumin/Globulin Ratio 0.9(L) 1.1 - 2.3 [facility] Creatinine 0.9 0.6 - 1.2 mg/dL [facility] Sodium 139 136 - 145 mmol/L [facility] Potassium 4.3 3.5 - 4.5 mmol/L [facility] Chloride 104 98 - 107 mmol/L [facility] CO2 26 22 - 29 mmol/L [facility] Glucose 106 70 - 115 mg/dL [facility] Calcium 9.0 8.4 - 10.2 mg/dL [facility] Protein Total 7.3 6.0 - 8.3 g/dL [facility] Albumin 3.4 3.4 - 5.0 g/dL [facility] Bilirubin Total 0.4 0.2 - 1.2 mg/dL [facility] Alkaline Phosphatase 75 40 - 150 Units/L [facility] ALT 79(H) 0 - 55 Units/L [facility] AST 210(H) 5 - 34 Units/L [facility] eGFR >60 >60 mL/min/1.7 3 m2 [facility] Blood specimen (specimen) BLOOD SPECIMEN / Unknown 03/20/2014 7:04 PM CDT 03/20/2014 7:31 PM CDT Frances Velázquez MD LAB - CHEMISTRY RUDOLPH VELOZ Performing Organization Address City/[facility]/ZIP Co de Phone Number [address] [phone] * ALCOHOL ETHYL BLOOD (03/20/2014 7:04 PM CDT) Interpretation Ethanol None Detected None Detected mg/dL [facility] Comment:Ethanol levels less than 10 mg/dL are resulted as None detected . Blood specimen (specimen) BLOOD SPECIMEN / Unknown 03/20/2014 7:04 PM CDT 03/20/2014 7:31 PM CDT Frances Velázquez MD LAB - CHEMISTRY RUDOLPH VELOZ Performing Organization Address [facility] Co de Phone Number [address] [phone] * XR PELVIS 1 OR 2VW (03/20/2014 6:58 PM CDT) Anatomical Region Laterality Modality Pelvis Other Impressions 03/21/2014 5:32 PM CDT Impression: No acute fracture or dislocation. This report has been dictated by Susan Torres MD. (Breastfeeding Educator). This report was approved by Susan Torres [...] PM CDT) Interpretation ABO/Rh Patient AB POS [facility] Antibody Screen NEGATIVE [facility] Blood specimen (specimen) BLOOD SPECIMEN / Unknown 03/20/2014 6:36 PM CDT 03/20/2014 7:34 PM CDT Frances Velázquez MD LAB - BLOOD [place] [address], [facility] [phone]
--- OUTSIDE RECORDS SUMMARY | 2025-01-18 09:45 | XMS_ITS | Clinical Summary ---
Author Organization [facility] Address [address] [place] [address] Phone Care Team Providers Care Hair Stylist Name Role Phone Provider, None Primary Care [...] of Treatment Not on file Insurance MEDICAID [facility] Care Teams Hair Stylist Relationship Specialty Start Date End Date Provider, None [place] PCP - General 04/02/19
--- OUTSIDE RECORDS SUMMARY | 2025-01-18 09:45 | XMS_ITS | Encounter Summary ---
Author Organization [facility] Address [address] [place] [address] Care Team Providers Care Labor Crew Supervisor Name Role Phone Carrol Benitez [facility] Primary Care Provider [phone] Encounter Details Date Type Department Care Team ([facility] st Contact Info) Description 04/16/2019 Abstract [facility] CONVERSION [address] [place] [address] , Generic Conversion, Social History Tobacco Use Types Packs/Day Years Used Date Smoking Tobacco: Never Assessed Sex and Gender Information Value Date Recorded Sex Assigned at Male 05/17/2020 10:19 PM CDT Legal Sex Male 9:09 PM RAILROAD BRAKEMAN Gender Identity Male 05/17/2020 10:19 PM CDT Sexual Orientation Not on file documented as of this encounter Plan of Treatment Not on file documented as of this encounter Visit Diagnoses Not on filedocumented in this encounter Additional Health Concerns Infection Onset Date Last Indicated Resolved Time COVID-19 Rule Out 10/16/2020 10/16/2020 10/18/2020 12:41 AM RAILROAD BRAKEMAN COVID-19 Rule Out 07/30/2021 07/30/2021 07/30/2021 7:11 PM CDT COVID-19 Rule Out 09/06/2021 09/06/2021 09/06/2021 7:47 PM CDT COVID-19 Rule Out 02/07/2022 02/07/2022 02/07/2022 7:20 PM CDT documented as of this encounter Care Teams Labor Crew Supervisor Relationship Specialty Start Date End Date Carrol Benitez FNP-BC [address] [place] [address] PCP - General NURSE PRACTITIONER 10/02/20 documented as of this encounter
--- OUTSIDE RECORDS SUMMARY | 2025-01-18 09:45 | XMS_ITS | Clinical Summary ---
Author Organization [facility] Address [address] [place] [address] Care Team Providers Care Desktop Analyst Name Role Phone Unavailable Primary Care Provider Unavailabl e Source Comments [facility],non-owned Affiliates and Associated Physician Practices is amultiple site organization consisting of ambulatory clinics and hospital sitesin [place], [place], [place] and [place]. This disclosure is being madepursuant to the Care Everywhere program and may not contain all information available regarding this patient. Last updated 18.[employer] [facility] Medications * Be aware that medications may [...]
--- OUTSIDE RECORDS SUMMARY | 2025-01-18 09:45 | XMS_ITS | Encounter Summary ---
Author Organization [facility] Address [address] [place] [address] Care Team Providers Care Enamel Buffer Name Role Phone Carrol Benitez [facility] Primary Care Provider [phone] Reason for Visit * Reason Onset Date Comments Hospital Follow Up 05/22/2020 05.21.20 Encounter Details Date Type Department Care Team (Latest Contact Info) Description 05/22/2020 Hospital Follow-up Call [facility] Cardiovascular Care Unit [address] [place] [address] Roxy Caballero, RN Hospital Follow Up (05.21.20) Social History Tobacco Use Types Packs/Day Years Used Date Smoking Tobacco: Every Day Cigarettes Smokeless Tobacco: Never Alcohol Use Standard Drinks/Week Comments Yes 60 (1 standard drink = 0.6 oz pu re alcohol) Sex and Gender Information Value Date Recorded Sex Assigned at Male 05/17/2020 10:19 PM CDT Legal Sex Male 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 CONSTRUCTION SERVICES Gender Identity Male 05/17/2020 10:19 PM CDT [...] AM SILAST Subha Bird RN Active * Because of [...] Rule Out 10/16/2020 10/16/2020 10/18/2020 12:41 AM DIRECTOR CONSTRUCTION SERVICES COVID-19 Rule Out 07/30/2021 07/30/2021 07/30/2021 7:11 PM CDT COVID-19 Rule Out 09/06/2021 09/06/2021 09/06/2021 7:47 PM CDT COVID-19 Rule Out 02/07/2022 02/07/2022 02/07/2022 7:20 PM CDT documented as of this encounter Care Teams Enamel Buffer Relationship Specialty Start Date End Date Carrol Benitez FNP-BC [address] [place] [address] PCP - General NURSE PRACTITIONER 10/02/20 documented as of this encounter
--- OUTSIDE RECORDS SUMMARY | 2025-01-18 09:45 | XMS_ITS | Clinical Summary ---
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 Address: [address] [address] [place] [address] Care Teams Medical Billing And Coding Specialist Relationship Specialty Start Date End Date No, Physician PCP - General 02/11/23
--- OUTSIDE RECORDS SUMMARY | 2025-01-18 09:45 | XMS_ITS | Referral Summary ---
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
--- OUTSIDE RECORDS SUMMARY | 2025-01-18 09:45 | XMS_ITS | Encounter Summary ---
Author Organization [facility] Address [address] [place] [address] Care Team Providers Care Collar Sewer Name Role Phone Carrol Benitez 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 Gender Identity Male 05/17/2020 10:19 PM CDT Sexual Orientation Not on file documented as of this encounter Plan of Treatment Not on file documented as of this encounter Visit Diagnoses Not on filedocumented in this encounter Additional Health Concerns Infection Onset Date Last Indicated Resolved Time COVID-19 Rule Out 10/16/2020 10/16/2020 10/18/2020 12:41 AM CERTIFIED PEST CONTROL TECHNICIAN COVID-19 Rule Out 07/30/2021 07/30/2021 07/30/2021 7:11 PM CDT COVID-19 Rule Out 09/06/2021 09/06/2021 09/06/2021 7:47 PM CDT COVID-19 Rule Out 02/07/2022 02/07/2022 02/07/2022 7:20 PM CDT documented as of this encounter Care Teams Collar Sewer Relationship Specialty Start Date End Date Carrol Benitez FNP-BC [address] [place] [address] PCP - General NURSE PRACTITIONER 10/02/20 documented as of this encounter
--- OUTSIDE RECORDS SUMMARY | 2025-01-18 09:45 | XMS_ITS | Referral Summary ---
Author Organization [facility] Address [address] [place] [address] Care Team Providers Care Hot Wire Glass Tube Cutter Name Role Phone Unavailable Primary Care Provider Unavailabl e Source Comments [facility],non-owned Affiliates and Associated Physician Practices is amultiple site organization consisting of ambulatory clinics and hospital sitesin [place], [place], [place] and [place]. This disclosure is being madepursuant to the Care Everywhere program and may not contain all information available regarding this patient. Last updated 18.[facility] Medications * Be aware that medications may [...] Ashraf Personal/Family Self 1955 [address] [address]
--- OUTSIDE RECORDS SUMMARY | 2025-01-18 09:45 | XMS_ITS | Clinical Summary ---
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 Trauma transfer from [facility]. Patient fell tonight. TECHNIQUE: CT of the [...] treated with right chest tube.Trauma transfer from [facility]. Patient fell tonight. TECHNIQUE: CT of the [...] 3:31 AM 05/21/2020 3:32 PM Care Teams Materials Handling Coordinator Relationship Specialty Start Date End Date Carrol Benitez FNP-BC [address] [place] [address] PCP - General NURSE PRACTITIONER 10/02/20
--- NOTE | 2025-01-18 09:59 | PC.NURSE ---
PT IS LYING ON STRETCHER WATCHING TV WITHOUT DISTRESS AT THIS TIME. PT IS AWAITING ERP DECISION. WILL CONTINUE TO MONITOR.
[2025-01-18] MEDS: HYDROcodone/acetaminophen (*CRX) 5-325 MG TABLET 1 TAB PO (10:25)
--- NOTE | 2025-01-18 10:29 | PC.NURSE ---
awaiting return call from Dr. Chen's office to schedule out pt appointment.
--- NOTE | 2025-01-18 11:10 | PC.NURSE ---
DR EARLY'S OFFICE HAS SET APPOINTMENT FOR ThursdayJanuary AT 0900. PT IS TO BE AT THE OFFICE AT 0900. HE IS IN [facility] [address] IN [place]EMENT. [phone]. PT HAS BEEN PROVIDED THE INFORMATION. HE VERBALIZED UNDERSTANDING.
[2025-01-18 11:16] VITALS: BP 158/96; PULSE 75; RESP 16; O2SAT 97
== END 2025-01-18 11:15 | disposition home or self-care (01) ==
PROVIDERS: Emergency Provider Internal Medicine Critical Care Medicine
DX: S82.401A Unspecified fracture of shaft of right fibula, initial encounter for closed fracture (principal); J44.9 Chronic obstructive pulmonary disease, unspecified; F17.200 Nicotine dependence, unspecified, uncomplicated; W19.XXXA Unspecified fall, initial encounter
CPT/HCPCS: 29515; 73610; 99284; A9270